=== PATIENT | female | born 1960 | race Caucasian/White ===

== ENCOUNTER 2017-07-12 23:18 | Emergency (ER) | payer OTHER ==
[~2017-07-12] VITALS: Ht 154.9 cm; Wt 61.2 kg
[2017-07-12 23:30] VITALS: BP 151/86
[2017-07-13] MEDS ORDERED: ACYCLOVIR 400 MG TAB PO ONE (02:00)
[2017-07-13] MEDS ORDERED: DEXAMETHASONE 4 MG TAB PO ONE (02:00)
== END 2017-07-13 02:13 | disposition home or self-care (01) ==
LOC: ER 23:22
DX: B02.9 Zoster without complications (principal)
CPT/HCPCS: 99283; J8540

== ENCOUNTER 2020-10-27 21:45 | Inpatient (IN) | payer MEDICAID, OTHER ==
[~2020-10-27] VITALS: Ht 154.9 cm; Wt 60.0 kg
[2020-10-27] MEDS ORDERED: cloNIDine HCL 0.1 MG TAB PO ONE (22:00)
[2020-10-27 22:34] LABS: Basophils # (auto) 0 10 ^3/uL (0-0.2); Eosinophils # (auto) 0 10 ^3/uL (0-0.8); Hemoglobin 10.5 g/dL (12.2-16.2); Neutrophils # (auto) 3.5 10 ^3/uL (1.6-8.6); White Blood Cell 5.4 10^3/uL (4.4-10.8)
[2020-10-27 22:35] LABS: Basophils % (auto) 0.6 % (0.0-2.0); Eosinophils % (auto) 0.5 % (0.0-7.0); Hematocrit 31.4 % (36.0-46.0); Lymphocytes # (auto) 1.5 10 ^3/uL (0.4-5.4); Lymphocytes % (auto) 28.4 % (10.0-50.0); Mean Corpuscular Hemoglobin 25.6 pg (28.0-32.0); Mean Corpuscular Hgb Conc. 33.4 g/dL (32.0-36.0); Mean Corpuscular Volume 76.5 fL (80.0-100.0); Monocytes # (auto) 0.3 10 ^3/uL (0-1.3); Monocytes % (auto) 6.4 % (0.0-12.0); Neutrophils % (auto) 64.1 % (37.0-80.0); Platelet Count (auto) 277 10^3/uL (140-450); Red Cell Distribution Width 15.6 % (11.8-14.3)
[2020-10-27 22:49] LABS: Albumin 3.4 g/dL (3.4-5.0); Anion Gap 10 (5-15); Blood Urea Nitrogen 12 mg/dL (7-18); Calcium 9.4 mg/dL (8.5-10.1); Carbon Dioxide 21 mmol/L (21-32); Chloride 111 mmol/L (98-107); Glucose 105 mg/dL (74-106); Potassium 3.4 mmol/L (3.5-5.1); Sodium 142 mmol/L (136-145)
[2020-10-27 22:54] LABS: Alanine Aminotransferase 28 U/L (13-56); Alkaline Phosphatase 124 U/L (45-117); Aspartate Aminotransferase 29 U/L (15-37); Bilirubin, Total 0.3 mg/dL (0.2-1.0); GFR African American 169 mL/min; GFR Non-African American 139 mL/min; Total Protein 7.3 g/dL (6.4-8.2)
[2020-10-28] MEDS ORDERED: IOHEXOL 300 MG/ML 100ML BOTTLE IJ ONE (02:14)
[2020-10-28] MEDS ORDERED: POTASSIUM CHL 20 Meq TABLET PO ONE (03:00)
[2020-10-28] MEDS ORDERED: HYDROcodone-ACET 5/325MG TAB PO PRN (03:00)
[2020-10-28] MEDS ORDERED: NITROGLYCERIN 0.4 MG SL TAB SL PRN (03:00)
[2020-10-28] MEDS ORDERED: DOCUSATE SOD 100 MG CAP PO PRN (03:00)
[2020-10-28] MEDS ORDERED: hydrALAZINE HCL 20 MG/ML VL IV PRN (03:00)
[2020-10-28] MEDS ORDERED: MORPHINE SULF INJ 2 MG/ML SYRINGE 1ML IV PRN (03:00)
[2020-10-28] MEDS ORDERED: MORPHINE SULFATE 4 MG/ML SYR/VIAL IV PRN (03:00)
[2020-10-28] MEDS ORDERED: ONDANSETRON HCL 4 MG/2 ML VIAL IV PRN (03:00)
[2020-10-28] MEDS ORDERED: GLIP10TA9 PO (04:26)
[2020-10-28] MEDS ORDERED: CETI-120 PO (04:26)
[2020-10-28] MEDS ORDERED: ROSU1TAB13 PO (04:26)
[2020-10-28] MEDS ORDERED: IBUP800T26 PO (04:26)
[2020-10-28] MEDS ORDERED: GABA300C10 PO (04:26)
[2020-10-28] MEDS ORDERED: FERR325T20 PO (04:26)
[2020-10-28] MEDS ORDERED: LISI-275 PO (04:26)
[2020-10-28] MEDS ORDERED: DAPA1TAB4 PO (04:26)
[2020-10-28 04:36] VITALS: BP 130/70
[2020-10-28 05:00] VITALS: BP 130/70
[2020-10-28] MEDS: SODIUM CHLOR 0.9% PF (SALINE LOCK) 10ML VIAL/SYR IV SCH ×3 (06:12→22:05)
[2020-10-28 08:33] VITALS: BP 136/81
[2020-10-28 09:01] LABS: Basophils # (auto) 0 10 ^3/uL (0-0.2); Eosinophils # (auto) 0 10 ^3/uL (0-0.8); Hemoglobin 9.9 g/dL (12.2-16.2); Lymphocytes # (auto) 0.9 10 ^3/uL (0.4-5.4); Monocytes # (auto) 0.3 10 ^3/uL (0-1.3)
[2020-10-28 09:04] LABS: Hematocrit 29.7 % (36.0-46.0); Lymphocytes % (auto) 19.6 % (10.0-50.0); Mean Corpuscular Hemoglobin 25.7 pg (28.0-32.0); Mean Corpuscular Hgb Conc. 33.3 g/dL (32.0-36.0); Mean Corpuscular Volume 77.1 fL (80.0-100.0); Monocytes % (auto) 7.6 % (0.0-12.0); Neutrophils # (auto) 3.1 10 ^3/uL (1.6-8.6); Neutrophils % (auto) 70.8 % (37.0-80.0); Platelet Count (auto) 259 10^3/uL (140-450); Red Blood Cells 3.85 10^6/uL (4.0-5.20); Red Cell Distribution Width 15.5 % (11.8-14.3); White Blood Cell 4.4 10^3/uL (4.4-10.8)
[2020-10-28 09:26] LABS: Albumin 3.2 g/dL (3.4-5.0); BUN/Creatinine Ratio 21.1; Bilirubin, Total 0.2 mg/dL (0.2-1.0); Total Protein 6.8 g/dL (6.4-8.2)
[2020-10-28] MEDS: FAMOTIDINE 20 MG TAB PO SCH (10:15)
[2020-10-28] MEDS: ZINC SULFATE 220mg CAP or TAB PO SCH (10:15)
[2020-10-28] MEDS: ASCORBIC ACID 500 MG TAB PO SCH ×2 (10:16→22:04)
[2020-10-28] MEDS: MULTIPLE VITAMIN TAB PO SCH (10:16)
[2020-10-28] MEDS: ENOXAPARIN SOD 40 MG/0.4 ML SYRINGE SC SCH (10:16)
[2020-10-28] MEDS ORDERED: ASPirin 81 mg TAB PO ONE (13:00)
[2020-10-28 13:09] VITALS: BP 144/74
[2020-10-28] MEDS ORDERED: DEXTROSE (50%) 50ML SYRG IV PRN (13:15)
[2020-10-28 16:37] VITALS: BP 147/68
[2020-10-28] MEDS: glipiZIDE 5 MG TAB PO SCH (17:00)
[2020-10-28] MEDS: ACETAMINOPHEN 325 MG TAB PO PRN (17:02)
[2020-10-28] MEDS: ACCU-CHEK COMFORT CURVE STRIP VI SCH ×2 (17:08→22:04)
[2020-10-28] MEDS: InsuLIN REG 1unit/0.01ml Soln (100units/ml) SC SCH ×2 (17:12→22:04)
[2020-10-28 22:00] VITALS: BP 138/69
[2020-10-28] MEDS ORDERED: GABAPENTIN 300 MG CAP PO PRN (22:00)
[2020-10-28] MEDS: ATORVASTATIN 20 MG TAB PO SCH (22:04)
[2020-10-28] MEDS: IBUPROFEN 800 MG TAB PO PRN (22:18)
[2020-10-29 05:00] VITALS: BP 146/75
[2020-10-29] MEDS: SODIUM CHLOR 0.9% PF (SALINE LOCK) 10ML VIAL/SYR IV SCH ×3 (06:09→21:58)
[2020-10-29] MEDS: ACCU-CHEK COMFORT CURVE STRIP VI SCH ×4 (06:09→21:53)
[2020-10-29] MEDS: InsuLIN REG 1unit/0.01ml Soln (100units/ml) SC SCH ×4 (06:15→21:54)
[2020-10-29] MEDS: IBUPROFEN 800 MG TAB PO PRN (06:18)
[2020-10-29 06:20] LABS: Basophils # (auto) 0 10 ^3/uL (0-0.2); Eosinophils # (auto) 0.1 10 ^3/uL (0-0.8); Mean Corpuscular Hemoglobin 25.9 pg (28.0-32.0); Monocytes # (auto) 0.4 10 ^3/uL (0-1.3); Neutrophils # (auto) 2.5 10 ^3/uL (1.6-8.6); Nucleated Red Blood Cells % 0.1 %
[2020-10-29 06:22] LABS: Eosinophils % (auto) 2.2 % (0.0-7.0); Hematocrit 29.8 % (36.0-46.0); Hemoglobin 10.1 g/dL (12.2-16.2); Lymphocytes # (auto) 1.3 10 ^3/uL (0.4-5.4); Lymphocytes % (auto) 30.3 % (10.0-50.0); Mean Corpuscular Hgb Conc. 33.8 g/dL (32.0-36.0); Mean Corpuscular Volume 76.6 fL (80.0-100.0); Monocytes % (auto) 8.9 % (0.0-12.0); Neutrophils % (auto) 57.6 % (37.0-80.0); Platelet Count (auto) 259 10^3/uL (140-450); Red Blood Cells 3.89 10^6/uL (4.0-5.20); Red Cell Distribution Width 15.1 % (11.8-14.3); White Blood Cell 4.3 10^3/uL (4.4-10.8)
[2020-10-29] MEDS: glipiZIDE 5 MG TAB PO SCH ×2 (06:34→17:00)
[2020-10-29 06:38] LABS: Albumin 3.2 g/dL (3.4-5.0); BUN/Creatinine Ratio 29.8; Calcium 8.8 mg/dL (8.5-10.1); Potassium 3.7 mmol/L (3.5-5.1)
[2020-10-29 06:40] LABS: Bilirubin, Total 0.3 mg/dL (0.2-1.0); Total Protein 6.8 g/dL (6.4-8.2)
[2020-10-29 09:00] VITALS: BP 144/81
[2020-10-29] MEDS: ASPirin 81 mg TAB PO SCH (09:55)
[2020-10-29] MEDS: ZINC SULFATE 220mg CAP or TAB PO SCH (09:56)
[2020-10-29] MEDS: FAMOTIDINE 20 MG TAB PO SCH (09:56)
[2020-10-29] MEDS: DAPAGLIFLOZIN 5 MG TAB PO SCH (09:56)
[2020-10-29] MEDS: FERROUS SULFATE 325mg EC TAB PO SCH (09:56)
[2020-10-29] MEDS: ASCORBIC ACID 500 MG TAB PO SCH ×2 (09:56→21:58)
[2020-10-29] MEDS: MULTIPLE VITAMIN TAB PO SCH (09:56)
[2020-10-29] MEDS: LISINOPRIL 5 MG TAB PO SCH (09:56)
[2020-10-29] MEDS: ENOXAPARIN SOD 40 MG/0.4 ML SYRINGE SC SCH (10:00)
[2020-10-29] MEDS: ACETAMINOPHEN 325 MG TAB PO PRN (10:58)
[2020-10-29 13:00] VITALS: BP 145/78
[2020-10-29 17:00] VITALS: BP 133/78
[2020-10-29] MEDS: ATORVASTATIN 20 MG TAB PO SCH (21:58)
[2020-10-29 22:00] VITALS: BP 133/76
[2020-10-29] MEDS ORDERED: GABAPENTIN 300 MG CAP PO PRN (22:45)
[2020-10-29 23:05] VITALS: BP 133/76
[2020-10-29] MEDS: SODIUM CHLORIDE 0.9% 1,000 ML IV SCH (23:26)
[2020-10-30] MEDS: IBUPROFEN 800 MG TAB PO PRN ×2 (02:30→10:58)
[2020-10-30 05:00] VITALS: BP 121/64
[2020-10-30] MEDS: glipiZIDE 5 MG TAB PO SCH (06:27)
[2020-10-30] MEDS: SODIUM CHLOR 0.9% PF (SALINE LOCK) 10ML VIAL/SYR IV SCH ×2 (06:27→14:00)
[2020-10-30] MEDS: InsuLIN REG 1unit/0.01ml Soln (100units/ml) SC SCH ×2 (06:33→11:15)
[2020-10-30] MEDS: ACCU-CHEK COMFORT CURVE STRIP VI SCH ×2 (06:44→11:15)
[2020-10-30 08:00] VITALS: BP 142/79
[2020-10-30] MEDS: SODIUM CHLORIDE 0.9% 1,000 ML IV SCH (08:30)
[2020-10-30 09:00] VITALS: BP 142/79
[2020-10-30 09:02] LABS: % Iron Saturation 6.2 % (15-50)
[2020-10-30 09:04] LABS: Cholesterol 130 mg/dL (< 200); HDL Cholesterol 38 mg/dL (40-59); LDL Cholesterol 77 mg/dL (< 100); Triglycerides 127 mg/dL (< 150)
[2020-10-30] MEDS: ASPirin 81 mg TAB PO SCH (09:45)
[2020-10-30] MEDS: FERROUS SULFATE 325mg EC TAB PO SCH (09:45)
[2020-10-30] MEDS: ZINC SULFATE 220mg CAP or TAB PO SCH (09:45)
[2020-10-30] MEDS: ASCORBIC ACID 500 MG TAB PO SCH (09:46)
[2020-10-30] MEDS: MULTIPLE VITAMIN TAB PO SCH (09:46)
[2020-10-30] MEDS: FAMOTIDINE 20 MG TAB PO SCH (09:46)
[2020-10-30] MEDS: ENOXAPARIN SOD 40 MG/0.4 ML SYRINGE SC SCH (09:47)
[2020-10-30] MEDS: LISINOPRIL 5 MG TAB PO SCH (09:47)
[2020-10-30] MEDS: DAPAGLIFLOZIN 5 MG TAB PO SCH (10:57)
[2020-10-30 13:00] VITALS: BP 139/82
[2020-10-30 14:29] VITALS: BP 139/82
== END 2020-10-30 15:20 | disposition home or self-care (01) | DRG 69 ==
LOC: ER 21:45 → TELE-EAST 10-28 02:55 → TELE-WESTW 10-30 01:20
PROVIDERS: ADMIT Nurse Practitioner Family; ATTEND Family Medicine
PROC: 5A09357 Assistance with Respiratory Ventilation, Less than 24 Consecutive Hours, Continuous Positive Airway Pressure (ICD-10-PCS; principal; 2020-10-29)
DX: G45.9 Transient cerebral ischemic attack, unspecified (principal); G81.94 Hemiplegia, unspecified affecting left nondominant side; R20.0 Anesthesia of skin; E87.6 Hypokalemia; I10 Essential (primary) hypertension; E11.9 Type 2 diabetes mellitus without complications; G25.81 Restless legs syndrome; E61.1 Iron deficiency; Z20.822 Contact with and (suspected) exposure to COVID-19; E78.00 Pure hypercholesterolemia, unspecified; E78.5 Hyperlipidemia, unspecified; F17.200 Nicotine dependence, unspecified, uncomplicated; Z79.82 Long term (current) use of aspirin; Z79.899 Other long term (current) drug therapy; Z80.7 Family history of other malignant neoplasms of lymphoid, hematopoietic and related tissues; Z82.3 Family history of stroke; Z82.49 Family history of ischemic heart disease and other diseases of the circulatory system; Z83.3 Family history of diabetes mellitus; Z90.710 Acquired absence of both cervix and uterus
CPT/HCPCS: 36415; 70450; 70460; 70551; 72125; 80053; 80061; 82728; 82962; 83036; 83540; 83550; 84484; 85025; 87426; 93005; 93306; 93886; 94660; G0378; J1815

== ENCOUNTER 2021-01-16 16:02 | Inpatient (IN) | payer MEDICAID ==
[~2021-01-16] VITALS: Ht 154.9 cm; Wt 64.5 kg
[~2021-01-16 16:02] MED LIST: CETI-120 PO; DAPA1TAB4 PO; FERR325T20 PO; GABA300C10 PO; GLIP10TA9 PO; IBUP800T26 PO; LISI-275 PO; ROSU1TAB13 PO
[2021-01-16] MEDS ORDERED: ACETAMINOPHEN 500 MG TAB PO ONE (16:30)
[2021-01-16] MEDS ORDERED: ASCORBIC ACID 500 MG TAB PO ONE (17:15)
[2021-01-16] MEDS ORDERED: AZITHROMYCIN 500MG/ 250ML 250 ML IV ONE (17:15)
[2021-01-16] MEDS ORDERED: ZINC SULFATE 220mg CAP or TAB PO ONE (17:15)
[2021-01-16] MEDS ORDERED: CHOLECALCIFEROL (VITD3) 2,000 UNIT CAP/TAB PO ONE (17:15)
[2021-01-16] MEDS ORDERED: methylPREDNISolone SOD SUCC 125 MG/2 ML VL IV ONE (17:15)
[2021-01-16 18:48] LABS: Basophils # (auto) 0 10 ^3/uL (0-0.2); Basophils % (auto) 0.2 % (0.0-2.0); Eosinophils # (auto) 0 10 ^3/uL (0-0.8); Hematocrit 29.1 % (36.0-46.0); Lymphocytes # (auto) 0.5 10 ^3/uL (0.4-5.4); Mean Corpuscular Volume 70.6 fL (80.0-100.0); Monocytes # (auto) 0.3 10 ^3/uL (0-1.3); White Blood Cell 2.7 10^3/uL (4.4-10.8)
[2021-01-16 18:50] LABS: Hemoglobin 9.4 g/dL (12.2-16.2); Lymphocytes % (auto) 17.9 % (10.0-50.0); Mean Corpuscular Hemoglobin 22.8 pg (28.0-32.0); Mean Corpuscular Hgb Conc. 32.3 g/dL (32.0-36.0); Monocytes % (auto) 10.2 % (0.0-12.0); Neutrophils % (auto) 71.7 % (37.0-80.0); Nucleated Red Blood Cells % 0.3 %; Red Blood Cells 4.13 10^6/uL (4.0-5.20); Red Cell Distribution Width 16.2 % (11.8-14.3)
[2021-01-16 19:05] LABS: Albumin 2.5 g/dL (3.4-5.0); Anion Gap 13 (5-15); BUN/Creatinine Ratio 26.7; Blood Urea Nitrogen 24 mg/dL (7-18); Calcium 8.2 mg/dL (8.5-10.1); Carbon Dioxide 23 mmol/L (21-32); Chloride 96 mmol/L (98-107); GFR African American 82 mL/min; GFR Non-African American 67 mL/min; Glucose 366 mg/dL (74-106); Potassium 3.3 mmol/L (3.5-5.1); Sodium 132 mmol/L (136-145)
[2021-01-16 19:10] LABS: Alanine Aminotransferase 63 U/L (13-56); Alkaline Phosphatase 281 U/L (45-117); Aspartate Aminotransferase 108 U/L (15-37); Bilirubin, Total 0.4 mg/dL (0.2-1.0); Total Protein 7.1 g/dL (6.4-8.2)
[2021-01-16] MEDS ORDERED: HYDROcodone-ACET 5/325MG TAB PO PRN (20:45)
[2021-01-16] MEDS ORDERED: hydrALAZINE HCL 20 MG/ML VL IV PRN (20:45)
[2021-01-16] MEDS ORDERED: REMDESIVIR PER PHARMACY 0 ML IV SCH (20:45)
[2021-01-16] MEDS ORDERED: IOHEXOL 350 MG/ML 100ML IJ ONE (21:10)
[2021-01-16] MEDS: ACCU-CHEK COMFORT CURVE STRIP VI SCH (22:00)
[2021-01-16] MEDS ORDERED: REMDESIVIR 200 MG in NS 210ml LOADING DOSE ADULT IV ONE (22:00)
[2021-01-16] MEDS ORDERED: POTASSIUM CHL 20MEQ/100ML 100 ML IV ONE (22:00)
[2021-01-16] MEDS: GABAPENTIN 300 MG CAP PO SCH (22:00)
[2021-01-16] MEDS: ATORVASTATIN 20 MG TAB PO SCH (22:00)
[2021-01-16] MEDS: InsuLIN REG 1unit/0.01ml Soln (100units/ml) SC SCH (22:00)
[2021-01-16] MEDS: INSULIN LANTUS (GLARGINE) 1 /0.01ml (100units/ml) SC SCH (22:00)
[2021-01-16] MEDS ORDERED: LORATADINE 10 MG TAB PO PRN (22:15)
[2021-01-16 22:47] VITALS: BP 117/63
[2021-01-17] MEDS: GABAPENTIN 300 MG CAP PO SCH ×3 (06:01→21:41)
[2021-01-17] MEDS: InsuLIN REG 1unit/0.01ml Soln (100units/ml) SC SCH ×4 (06:35→21:45)
[2021-01-17] MEDS: ALBUTEROL SULF HFA 90MCG INH 200DOSE IN SCH ×4 (06:46→18:44)
[2021-01-17] MEDS: ACCU-CHEK COMFORT CURVE STRIP VI SCH ×4 (06:48→21:45)
[2021-01-17] MEDS: LISINOPRIL 5 MG TAB PO SCH (10:35)
[2021-01-17] MEDS: DexAMETHasone SOD PHOS 10MG/1ML VIAL INJ IV SCH (10:35)
[2021-01-17] MEDS: FERROUS SULFATE 325mg EC TAB PO SCH (10:35)
[2021-01-17] MEDS: PANTOPRAZOLE 40 MG TAB PO SCH (10:35)
[2021-01-17] MEDS: ENOXAPARIN SOD 40 MG/0.4 ML SYRINGE SC SCH (10:35)
[2021-01-17] MEDS: INSULIN LANTUS (GLARGINE) 1 /0.01ml (100units/ml) SC SCH ×2 (11:56→21:45)
[2021-01-17 12:24] LABS: Basophils # (auto) 0 10 ^3/uL (0-0.2); Basophils % (auto) 0.2 % (0.0-2.0); Eosinophils # (auto) 0 10 ^3/uL (0-0.8); Lymphocytes # (auto) 0.6 10 ^3/uL (0.4-5.4); Mean Corpuscular Hgb Conc. 32.3 g/dL (32.0-36.0); Monocytes # (auto) 0.4 10 ^3/uL (0-1.3); Neutrophils # (auto) 2.5 10 ^3/uL (1.6-8.6)
[2021-01-17 12:26] LABS: Eosinophils % (auto) 0.1 % (0.0-7.0); Hemoglobin 10.4 g/dL (12.2-16.2); Lymphocytes % (auto) 16.6 % (10.0-50.0); Mean Corpuscular Hemoglobin 22.8 pg (28.0-32.0); Mean Corpuscular Volume 70.7 fL (80.0-100.0); Monocytes % (auto) 10.9 % (0.0-12.0); Neutrophils % (auto) 72.2 % (37.0-80.0); Red Blood Cells 4.53 10^6/uL (4.0-5.20); Red Cell Distribution Width 15.8 % (11.8-14.3); White Blood Cell 3.4 10^3/uL (4.4-10.8)
[2021-01-17 12:36] LABS: Albumin 2.7 g/dL (3.4-5.0); Calcium 9.6 mg/dL (8.5-10.1); Potassium 3.3 mmol/L (3.5-5.1)
[2021-01-17 12:39] LABS: BUN/Creatinine Ratio 30.9; Bilirubin, Total 0.4 mg/dL (0.2-1.0); Total Protein 8.1 g/dL (6.4-8.2)
[2021-01-17 13:33] VITALS: BP 118/68
[2021-01-17] MEDS: DOXYCYCLINE 100 MG TAB/CAP PO SCH ×2 (14:20→21:42)
[2021-01-17] MEDS: REMDESIVIR 100mg 100 MG in SODIUM CHL 0.9% 230 ML IV SCH (14:21)
[2021-01-17 17:00] VITALS: BP 120/68
[2021-01-17 20:00] VITALS: BP 114/63
[2021-01-17] MEDS: ATORVASTATIN 20 MG TAB PO SCH (21:41)
[2021-01-17 22:00] VITALS: BP 114/63
[2021-01-18] VITALS (7 sets, daily range): BP systolic 101–112; BP diastolic 55–62
[2021-01-18] MEDS: ALBUTEROL SULF HFA 90MCG INH 200DOSE IN SCH ×4 (00:33→18:08)
[2021-01-18] MEDS: ACCU-CHEK COMFORT CURVE STRIP VI SCH ×4 (06:32→21:58)
[2021-01-18] MEDS: InsuLIN REG 1unit/0.01ml Soln (100units/ml) SC SCH ×4 (06:34→22:12)
[2021-01-18] MEDS: GABAPENTIN 300 MG CAP PO SCH ×3 (06:42→21:58)
[2021-01-18 06:50] LABS: Basophils # (auto) 0 10 ^3/uL (0-0.2); Basophils % (auto) 0.1 % (0.0-2.0); Eosinophils # (auto) 0 10 ^3/uL (0-0.8); Lymphocytes # (auto) 0.5 10 ^3/uL (0.4-5.4); Lymphocytes % (auto) 13.3 % (10.0-50.0); Mean Corpuscular Hemoglobin 22.9 pg (28.0-32.0); White Blood Cell 4.1 10^3/uL (4.4-10.8)
[2021-01-18 06:52] LABS: Hematocrit 27.7 % (36.0-46.0); Mean Corpuscular Hgb Conc. 32.6 g/dL (32.0-36.0); Mean Corpuscular Volume 70.2 fL (80.0-100.0); Monocytes # (auto) 0.5 10 ^3/uL (0-1.3); Monocytes % (auto) 12.5 % (0.0-12.0); Neutrophils % (auto) 74.1 % (37.0-80.0); Nucleated Red Blood Cells % 0.1 %; Red Blood Cells 3.95 10^6/uL (4.0-5.20)
[2021-01-18 07:04] LABS: Potassium 3.8 mmol/L (3.5-5.1)
[2021-01-18 07:11] LABS: Albumin 2.1 g/dL (3.4-5.0); BUN/Creatinine Ratio 45.6; Bilirubin, Total 0.3 mg/dL (0.2-1.0); Calcium 9.1 mg/dL (8.5-10.1); Total Protein 6.7 g/dL (6.4-8.2)
[2021-01-18] MEDS: DexAMETHasone SOD PHOS 10MG/1ML VIAL INJ IV SCH (09:32)
[2021-01-18] MEDS: PANTOPRAZOLE 40 MG TAB PO SCH (09:32)
[2021-01-18] MEDS: FERROUS SULFATE 325mg EC TAB PO SCH (09:33)
[2021-01-18] MEDS: LISINOPRIL 5 MG TAB PO SCH (09:33)
[2021-01-18] MEDS: DOXYCYCLINE 100 MG TAB/CAP PO SCH ×2 (09:33→21:58)
[2021-01-18] MEDS: INSULIN LANTUS (GLARGINE) 1 /0.01ml (100units/ml) SC SCH ×2 (09:50→22:13)
[2021-01-18] MEDS: ENOXAPARIN SOD 40 MG/0.4 ML SYRINGE SC SCH (10:00)
[2021-01-18] MEDS ORDERED: guaiFENesin-DM 100/10mg/5ml SYR PO PRN (14:00)
[2021-01-18] MEDS: REMDESIVIR 100mg 100 MG in SODIUM CHL 0.9% 230 ML IV SCH (14:24)
[2021-01-18] MEDS: ATORVASTATIN 20 MG TAB PO SCH (21:58)
[2021-01-19 06:06] LABS: Basophils # (auto) 0 10 ^3/uL (0-0.2); Eosinophils # (auto) 0 10 ^3/uL (0-0.8); Lymphocytes # (auto) 0.6 10 ^3/uL (0.4-5.4); Mean Corpuscular Volume 69.8 fL (80.0-100.0); Monocytes # (auto) 0.5 10 ^3/uL (0-1.3); Neutrophils # (auto) 3.1 10 ^3/uL (1.6-8.6)
[2021-01-19 06:10] LABS: Basophils % (auto) 0.2 % (0.0-2.0); Hematocrit 26.5 % (36.0-46.0); Hemoglobin 8.6 g/dL (12.2-16.2); Lymphocytes % (auto) 14.8 % (10.0-50.0); Mean Corpuscular Hemoglobin 22.6 pg (28.0-32.0); Mean Corpuscular Hgb Conc. 32.3 g/dL (32.0-36.0); Monocytes % (auto) 11.3 % (0.0-12.0); Neutrophils % (auto) 73.7 % (37.0-80.0); Nucleated Red Blood Cells % 0.1 %; Red Cell Distribution Width 15.7 % (11.8-14.3); White Blood Cell 4.2 10^3/uL (4.4-10.8)
[2021-01-19] MEDS: ACCU-CHEK COMFORT CURVE STRIP VI SCH ×4 (06:37→21:53)
[2021-01-19] MEDS: GABAPENTIN 300 MG CAP PO SCH ×3 (06:37→21:53)
[2021-01-19] MEDS: InsuLIN REG 1unit/0.01ml Soln (100units/ml) SC SCH ×4 (06:38→22:06)
[2021-01-19 06:47] LABS: Potassium 3.1 mmol/L (3.5-5.1)
[2021-01-19 07:04] LABS: Albumin 2.1 g/dL (3.4-5.0); BUN/Creatinine Ratio 39.6; Bilirubin, Total 0.4 mg/dL (0.2-1.0); Calcium 8.8 mg/dL (8.5-10.1); Total Protein 6.3 g/dL (6.4-8.2)
[2021-01-19] MEDS: ALBUTEROL SULF HFA 90MCG INH 200DOSE IN SCH ×4 (07:45→20:29)
[2021-01-19 08:50] VITALS: BP 111/54
[2021-01-19] MEDS: DOXYCYCLINE 100 MG TAB/CAP PO SCH ×2 (09:40→21:53)
[2021-01-19] MEDS: FERROUS SULFATE 325mg EC TAB PO SCH (09:40)
[2021-01-19] MEDS: ENOXAPARIN SOD 40 MG/0.4 ML SYRINGE SC SCH (09:40)
[2021-01-19] MEDS: DexAMETHasone SOD PHOS 10MG/1ML VIAL INJ IV SCH (09:40)
[2021-01-19] MEDS: LISINOPRIL 5 MG TAB PO SCH (09:40)
[2021-01-19] MEDS: PANTOPRAZOLE 40 MG TAB PO SCH (09:40)
[2021-01-19] MEDS: INSULIN LANTUS (GLARGINE) 1 /0.01ml (100units/ml) SC SCH ×2 (09:54→22:07)
[2021-01-19 12:15] VITALS: BP 119/64
[2021-01-19 14:00] VITALS: BP 119/64
[2021-01-19] MEDS: REMDESIVIR 100mg 100 MG in SODIUM CHL 0.9% 230 ML IV SCH (14:50)
[2021-01-19 16:33] VITALS: BP 119/64
[2021-01-19 17:02] VITALS: BP 120/68
[2021-01-19] MEDS ORDERED: POTASSIUM EFFERVESENT TAB 25 MEQ PO SCH (20:00)
[2021-01-19] MEDS: ATORVASTATIN 20 MG TAB PO SCH (21:52)
[2021-01-19 22:08] VITALS: BP 131/72
[2021-01-20] MEDS ORDERED: POTASSIUM EFFERVESENT TAB 25 MEQ PO SCH (00:30)
[2021-01-20 05:04] VITALS: BP 125/69
[2021-01-20] MEDS: GABAPENTIN 300 MG CAP PO SCH ×3 (06:27→21:36)
[2021-01-20] MEDS: InsuLIN REG 1unit/0.01ml Soln (100units/ml) SC SCH ×4 (06:28→21:37)
[2021-01-20] MEDS: ACCU-CHEK COMFORT CURVE STRIP VI SCH ×4 (06:28→21:38)
[2021-01-20] MEDS: ALBUTEROL SULF HFA 90MCG INH 200DOSE IN SCH ×4 (06:44→18:55)
[2021-01-20 08:01] LABS: Basophils # (auto) 0 10 ^3/uL (0-0.2); Eosinophils # (auto) 0 10 ^3/uL (0-0.8); Mean Corpuscular Volume 69.7 fL (80.0-100.0); White Blood Cell 5.8 10^3/uL (4.4-10.8)
[2021-01-20 08:04] LABS: Basophils % (auto) 0.2 % (0.0-2.0); Hematocrit 28.5 % (36.0-46.0); Hemoglobin 9.2 g/dL (12.2-16.2); Lymphocytes % (auto) 16.6 % (10.0-50.0); Mean Corpuscular Hemoglobin 22.4 pg (28.0-32.0); Mean Corpuscular Hgb Conc. 32.2 g/dL (32.0-36.0); Monocytes # (auto) 0.6 10 ^3/uL (0-1.3); Monocytes % (auto) 9.9 % (0.0-12.0); Neutrophils # (auto) 4.2 10 ^3/uL (1.6-8.6); Neutrophils % (auto) 73.3 % (37.0-80.0); Nucleated Red Blood Cells % 0.1 %; Red Blood Cells 4.09 10^6/uL (4.0-5.20); Red Cell Distribution Width 15.9 % (11.8-14.3)
[2021-01-20 08:18] LABS: Albumin 2.1 g/dL (3.4-5.0); Calcium 8.8 mg/dL (8.5-10.1); Potassium 3.6 mmol/L (3.5-5.1)
[2021-01-20] MEDS ORDERED: IOHEXOL 300 MG/ML 100ML BOTTLE IJ ONE (08:18)
[2021-01-20 08:26] LABS: BUN/Creatinine Ratio 37.5; Bilirubin, Total 0.4 mg/dL (0.2-1.0); CRP High Sensitivity 3.19 mg/dL (< 0.3); Total Protein 6.2 g/dL (6.4-8.2)
[2021-01-20 09:13] VITALS: BP 122/55
[2021-01-20] MEDS: INSULIN LANTUS (GLARGINE) 1 /0.01ml (100units/ml) SC SCH ×2 (10:00→21:38)
[2021-01-20] MEDS: DexAMETHasone SOD PHOS 10MG/1ML VIAL INJ IV SCH (10:45)
[2021-01-20] MEDS: PANTOPRAZOLE 40 MG TAB PO SCH (10:45)
[2021-01-20] MEDS: ENOXAPARIN SOD 40 MG/0.4 ML SYRINGE SC SCH (10:45)
[2021-01-20] MEDS: DOXYCYCLINE 100 MG TAB/CAP PO SCH ×2 (10:45→21:37)
[2021-01-20] MEDS: LISINOPRIL 5 MG TAB PO SCH (10:46)
[2021-01-20] MEDS: FERROUS SULFATE 325mg EC TAB PO SCH (11:05)
[2021-01-20 13:16] VITALS: BP 133/63
[2021-01-20] MEDS: REMDESIVIR 100mg 100 MG in SODIUM CHL 0.9% 230 ML IV SCH (14:55)
[2021-01-20 17:06] VITALS: BP 134/73
[2021-01-20] MEDS: ATORVASTATIN 20 MG TAB PO SCH (21:36)
[2021-01-20 22:25] VITALS: BP 112/66
[2021-01-21] MEDS: ALBUTEROL SULF HFA 90MCG INH 200DOSE IN SCH ×4 (00:56→19:35)
[2021-01-21 05:04] VITALS: BP 118/67
[2021-01-21] MEDS: ACCU-CHEK COMFORT CURVE STRIP VI SCH ×4 (06:25→21:46)
[2021-01-21] MEDS: GABAPENTIN 300 MG CAP PO SCH ×3 (06:25→21:38)
[2021-01-21] MEDS: InsuLIN REG 1unit/0.01ml Soln (100units/ml) SC SCH ×4 (06:30→21:44)
[2021-01-21 07:16] LABS: Basophils # (auto) 0 10 ^3/uL (0-0.2); Basophils % (auto) 0.1 % (0.0-2.0); Eosinophils # (auto) 0 10 ^3/uL (0-0.8); Hematocrit 28.4 % (36.0-46.0); Hemoglobin 9.3 g/dL (12.2-16.2); Lymphocytes # (auto) 0.5 10 ^3/uL (0.4-5.4); Lymphocytes % (auto) 9.5 % (10.0-50.0); Mean Corpuscular Hemoglobin 22.7 pg (28.0-32.0); Mean Corpuscular Hgb Conc. 32.7 g/dL (32.0-36.0); Mean Corpuscular Volume 69.4 fL (80.0-100.0); Monocytes # (auto) 0.4 10 ^3/uL (0-1.3); Monocytes % (auto) 7.9 % (0.0-12.0); Neutrophils # (auto) 4.4 10 ^3/uL (1.6-8.6); Neutrophils % (auto) 82.5 % (37.0-80.0); Nucleated Red Blood Cells % 0.1 %; Red Blood Cells 4.09 10^6/uL (4.0-5.20); Red Cell Distribution Width 16.3 % (11.8-14.3); White Blood Cell 5.3 10^3/uL (4.4-10.8)
[2021-01-21 07:36] LABS: BUN/Creatinine Ratio 34.6; Calcium 8.6 mg/dL (8.5-10.1); Potassium 3.3 mmol/L (3.5-5.1)
[2021-01-21 08:00] VITALS: BP 129/67
[2021-01-21] MEDS: DexAMETHasone SOD PHOS 10MG/1ML VIAL INJ IV SCH (08:43)
[2021-01-21] MEDS: FERROUS SULFATE 325mg EC TAB PO SCH (08:43)
[2021-01-21] MEDS: PANTOPRAZOLE 40 MG TAB PO SCH (08:44)
[2021-01-21] MEDS: DOXYCYCLINE 100 MG TAB/CAP PO SCH ×2 (08:44→21:39)
[2021-01-21] MEDS: ENOXAPARIN SOD 40 MG/0.4 ML SYRINGE SC SCH (08:46)
[2021-01-21] MEDS: LISINOPRIL 5 MG TAB PO SCH (08:46)
[2021-01-21] MEDS: INSULIN LANTUS (GLARGINE) 1 /0.01ml (100units/ml) SC SCH ×2 (08:47→21:46)
[2021-01-21 12:00] VITALS: BP 126/75
[2021-01-21 16:00] VITALS: BP 118/71
[2021-01-21 20:00] VITALS: BP 129/64
[2021-01-21] MEDS: ATORVASTATIN 20 MG TAB PO SCH (21:38)
[2021-01-21 22:25] VITALS: BP 129/64
[2021-01-22] VITALS (7 sets, daily range): BP systolic 104–133; BP diastolic 5–85
[2021-01-22] MEDS: ALBUTEROL SULF HFA 90MCG INH 200DOSE IN SCH ×4 (00:28→19:26)
[2021-01-22] MEDS: ACCU-CHEK COMFORT CURVE STRIP VI SCH ×4 (06:22→21:14)
[2021-01-22] MEDS: InsuLIN REG 1unit/0.01ml Soln (100units/ml) SC SCH ×4 (06:29→21:16)
[2021-01-22] MEDS: GABAPENTIN 300 MG CAP PO SCH ×3 (06:29→21:14)
[2021-01-22] MEDS: DexAMETHasone SOD PHOS 10MG/1ML VIAL INJ IV SCH (09:31)
[2021-01-22] MEDS: FERROUS SULFATE 325mg EC TAB PO SCH (09:31)
[2021-01-22] MEDS: DOXYCYCLINE 100 MG TAB/CAP PO SCH ×2 (09:32→21:14)
[2021-01-22] MEDS: PANTOPRAZOLE 40 MG TAB PO SCH (09:32)
[2021-01-22] MEDS: LISINOPRIL 5 MG TAB PO SCH (09:32)
[2021-01-22] MEDS: ENOXAPARIN SOD 40 MG/0.4 ML SYRINGE SC SCH (09:33)
[2021-01-22] MEDS: INSULIN LANTUS (GLARGINE) 1 /0.01ml (100units/ml) SC SCH ×2 (12:19→21:18)
[2021-01-22] MEDS ORDERED: DOX100T PO (18:54)
[2021-01-22] MEDS ORDERED: ALBU0.08 NEB (18:54)
[2021-01-22] MEDS ORDERED: DEXT1SYP9 PO (18:54)
[2021-01-22] MEDS ORDERED: IPR002IS NEB (18:54)
[2021-01-22] MEDS ORDERED: DEXA6TAB6 PO (18:54)
[2021-01-22] MEDS ORDERED: ALBUAER3 IN (18:54)
[2021-01-22] MEDS: ATORVASTATIN 20 MG TAB PO SCH (21:14)
[2021-01-22] MEDS: ACETAMINOPHEN 325 MG TAB PO PRN (21:17)
[2021-01-23] MEDS: ALBUTEROL SULF HFA 90MCG INH 200DOSE IN SCH ×4 (00:42→19:18)
[2021-01-23 05:32] VITALS: BP 130/69
[2021-01-23] MEDS: GABAPENTIN 300 MG CAP PO SCH ×3 (06:01→20:53)
[2021-01-23] MEDS: InsuLIN REG 1unit/0.01ml Soln (100units/ml) SC SCH ×4 (06:36→20:54)
[2021-01-23] MEDS: ACCU-CHEK COMFORT CURVE STRIP VI SCH ×4 (06:36→20:55)
[2021-01-23 08:00] VITALS: BP 109/60
[2021-01-23 09:00] VITALS: BP 109/60
[2021-01-23] MEDS ORDERED: IOHEXOL 350 MG/ML 100ML IJ ONE (10:24)
[2021-01-23] MEDS: DexAMETHasone SOD PHOS 10MG/1ML VIAL INJ IV SCH (10:47)
[2021-01-23] MEDS: INSULIN LANTUS (GLARGINE) 1 /0.01ml (100units/ml) SC SCH ×2 (10:47→21:07)
[2021-01-23] MEDS: ENOXAPARIN SOD 40 MG/0.4 ML SYRINGE SC SCH (10:47)
[2021-01-23] MEDS: FERROUS SULFATE 325mg EC TAB PO SCH (10:47)
[2021-01-23] MEDS: DOXYCYCLINE 100 MG TAB/CAP PO SCH ×2 (10:47→20:53)
[2021-01-23] MEDS: PANTOPRAZOLE 40 MG TAB PO SCH (10:47)
[2021-01-23] MEDS: LISINOPRIL 5 MG TAB PO SCH (10:47)
[2021-01-23 11:03] LABS: Hemoglobin 9.5 g/dL (12.2-16.2); White Blood Cell 5.2 10^3/uL (4.4-10.8)
[2021-01-23 11:05] LABS: Hematocrit 29.5 % (36.0-46.0); Mean Corpuscular Hemoglobin 22.5 pg (28.0-32.0); Mean Corpuscular Hgb Conc. 32.3 g/dL (32.0-36.0); Mean Corpuscular Volume 69.8 fL (80.0-100.0); Red Blood Cells 4.23 10^6/uL (4.0-5.20); Red Cell Distribution Width 16.2 % (11.8-14.3)
[2021-01-23 11:07] LABS: Basophils % (manual) 0 (0.0-2.0); Blast Cells 0; Metamyelocytes % 0; Myelocytes % 0; Promyelocytes % 0; Reactive Lymphocytes 0
[2021-01-23 11:17] LABS: INR 1.23 (0.9-1.15); Partial Thromboplastin Time 24.4 sec (23.6-33.0)
[2021-01-23 11:28] LABS: Calcium 8.2 mg/dL (8.5-10.1); Potassium 3.8 mmol/L (3.5-5.1)
[2021-01-23 11:30] LABS: Band Neutrophils % (manual) 1; Eosinophils % (manual) 1 (0-7); Lymphocytes % (manual) 19 (10.0-50.0); Monocytes % (manual) 7 (0-12)
[2021-01-23] MEDS ORDERED: FUROSEMIDE 40 MG/4 ML VIAL IV ONE (11:45)
[2021-01-23 12:46] VITALS: BP 114/58
[2021-01-23 16:55] VITALS: BP 114/71
[2021-01-23] MEDS: ATORVASTATIN 20 MG TAB PO SCH (20:52)
[2021-01-23 22:00] VITALS: BP 119/70
[2021-01-24] MEDS: ALBUTEROL SULF HFA 90MCG INH 200DOSE IN SCH ×5 (00:45→22:26)
[2021-01-24 05:25] VITALS: BP 128/65
[2021-01-24] MEDS: GABAPENTIN 300 MG CAP PO SCH ×3 (05:55→21:19)
[2021-01-24] MEDS: ACCU-CHEK COMFORT CURVE STRIP VI SCH ×4 (06:18→21:19)
[2021-01-24] MEDS: InsuLIN REG 1unit/0.01ml Soln (100units/ml) SC SCH ×4 (06:20→21:21)
[2021-01-24 08:36] VITALS: BP 118/63
[2021-01-24] MEDS: LISINOPRIL 5 MG TAB PO SCH (09:25)
[2021-01-24] MEDS: PANTOPRAZOLE 40 MG TAB PO SCH (09:25)
[2021-01-24] MEDS: FERROUS SULFATE 325mg EC TAB PO SCH (09:25)
[2021-01-24] MEDS: FUROSEMIDE 40 MG/4 ML VIAL IV SCH (09:26)
[2021-01-24] MEDS: ENOXAPARIN SOD 40 MG/0.4 ML SYRINGE SC SCH (09:26)
[2021-01-24] MEDS: DexAMETHasone SOD PHOS 10MG/1ML VIAL INJ IV SCH (09:31)
[2021-01-24] MEDS: INSULIN LANTUS (GLARGINE) 1 /0.01ml (100units/ml) SC SCH ×2 (09:33→21:34)
[2021-01-24 12:34] VITALS: BP 118/65
[2021-01-24 17:00] VITALS: BP 110/59
[2021-01-24 21:04] VITALS: BP 110/59
[2021-01-24] MEDS: ATORVASTATIN 20 MG TAB PO SCH (21:19)
[2021-01-24 22:00] VITALS: BP 110/51
[2021-01-25 05:00] VITALS: BP 122/73
[2021-01-25] MEDS: GABAPENTIN 300 MG CAP PO SCH ×3 (05:52→22:29)
[2021-01-25] MEDS: ACCU-CHEK COMFORT CURVE STRIP VI SCH ×4 (06:35→22:29)
[2021-01-25] MEDS: InsuLIN REG 1unit/0.01ml Soln (100units/ml) SC SCH ×5 (06:35→23:05)
[2021-01-25] MEDS: ALBUTEROL SULF HFA 90MCG INH 200DOSE IN SCH ×3 (07:01→18:45)
[2021-01-25 09:00] VITALS: BP 118/66
[2021-01-25] MEDS: PANTOPRAZOLE 40 MG TAB PO SCH (09:40)
[2021-01-25] MEDS: DexAMETHasone SOD PHOS 10MG/1ML VIAL INJ IV SCH (09:40)
[2021-01-25] MEDS: FERROUS SULFATE 325mg EC TAB PO SCH (09:40)
[2021-01-25] MEDS: LISINOPRIL 5 MG TAB PO SCH (09:40)
[2021-01-25] MEDS: FUROSEMIDE 40 MG/4 ML VIAL IV SCH (09:40)
[2021-01-25] MEDS: ENOXAPARIN SOD 40 MG/0.4 ML SYRINGE SC SCH (09:41)
[2021-01-25] MEDS: INSULIN LANTUS (GLARGINE) 1 /0.01ml (100units/ml) SC SCH ×2 (09:54→23:05)
[2021-01-25 12:30] VITALS: BP 118/66
[2021-01-25 17:00] VITALS: BP 118/65
[2021-01-25 22:00] VITALS: BP 107/59
[2021-01-25] MEDS: ATORVASTATIN 20 MG TAB PO SCH (22:28)
[2021-01-26] MEDS: ALBUTEROL SULF HFA 90MCG INH 200DOSE IN SCH ×4 (00:16→18:00)
[2021-01-26 05:00] VITALS: BP 127/75
[2021-01-26] MEDS: GABAPENTIN 300 MG CAP PO SCH ×3 (06:30→21:56)
[2021-01-26] MEDS: ACCU-CHEK COMFORT CURVE STRIP VI SCH ×4 (06:30→21:56)
[2021-01-26 06:46] LABS: Potassium 3.8 mmol/L (3.5-5.1)
[2021-01-26] MEDS: InsuLIN REG 1unit/0.01ml Soln (100units/ml) SC SCH ×4 (06:46→22:03)
[2021-01-26 06:55] LABS: Basophils # (auto) 0 10 ^3/uL (0-0.2); Eosinophils # (auto) 0 10 ^3/uL (0-0.8); Hematocrit 28.4 % (36.0-46.0); Lymphocytes # (auto) 0.8 10 ^3/uL (0.4-5.4); Monocytes # (auto) 0.9 10 ^3/uL (0-1.3)
[2021-01-26 06:57] LABS: Basophils % (auto) 0.2 % (0.0-2.0); Lymphocytes % (auto) 11.3 % (10.0-50.0); Mean Corpuscular Hemoglobin 22.1 pg (28.0-32.0); Mean Corpuscular Hgb Conc. 31.7 g/dL (32.0-36.0); Mean Corpuscular Volume 69.8 fL (80.0-100.0); Monocytes % (auto) 12.3 % (0.0-12.0); Neutrophils # (auto) 5.5 10 ^3/uL (1.6-8.6); Neutrophils % (auto) 76.2 % (37.0-80.0); Nucleated Red Blood Cells % 0.1 %; Red Blood Cells 4.07 10^6/uL (4.0-5.20); Red Cell Distribution Width 15.9 % (11.8-14.3); White Blood Cell 7.3 10^3/uL (4.4-10.8)
[2021-01-26 06:58] LABS: Albumin 1.9 g/dL (3.4-5.0); BUN/Creatinine Ratio 25.9; Bilirubin, Total 0.3 mg/dL (0.2-1.0); Calcium 8.8 mg/dL (8.5-10.1); Total Protein 6.2 g/dL (6.4-8.2)
[2021-01-26 08:00] VITALS: BP 118/66
[2021-01-26 09:00] VITALS: BP 122/70
[2021-01-26] MEDS: INSULIN LANTUS (GLARGINE) 1 /0.01ml (100units/ml) SC SCH ×2 (10:17→22:03)
[2021-01-26] MEDS: PANTOPRAZOLE 40 MG TAB PO SCH (10:25)
[2021-01-26] MEDS: DexAMETHasone SOD PHOS 10MG/1ML VIAL INJ IV SCH (10:25)
[2021-01-26] MEDS: FERROUS SULFATE 325mg EC TAB PO SCH (10:26)
[2021-01-26] MEDS: LISINOPRIL 5 MG TAB PO SCH (10:26)
[2021-01-26] MEDS: FUROSEMIDE 40 MG/4 ML VIAL IV SCH (10:26)
[2021-01-26] MEDS: ENOXAPARIN SOD 40 MG/0.4 ML SYRINGE SC SCH (10:27)
[2021-01-26 13:00] VITALS: BP 120/66
[2021-01-26 16:50] VITALS: BP 121/73
[2021-01-26] MEDS: ACETAMINOPHEN 325 MG TAB PO PRN (21:47)
[2021-01-26] MEDS: ATORVASTATIN 20 MG TAB PO SCH (21:56)
[2021-01-26 22:00] VITALS: BP 115/68
[2021-01-27] MEDS: ALBUTEROL SULF HFA 90MCG INH 200DOSE IN SCH ×4 (00:09→19:00)
[2021-01-27 05:00] VITALS: BP 130/66
[2021-01-27] MEDS: GABAPENTIN 300 MG CAP PO SCH ×3 (06:04→22:02)
[2021-01-27] MEDS: ACCU-CHEK COMFORT CURVE STRIP VI SCH ×4 (06:04→22:02)
[2021-01-27] MEDS: InsuLIN REG 1unit/0.01ml Soln (100units/ml) SC SCH ×4 (06:15→22:26)
[2021-01-27 07:42] LABS: Eosinophils # (auto) 0 10 ^3/uL (0-0.8); Lymphocytes # (auto) 0.9 10 ^3/uL (0.4-5.4)
[2021-01-27 07:44] LABS: Basophils # (auto) 0.1 10 ^3/uL (0-0.2); Basophils % (auto) 0.8 % (0.0-2.0); Hematocrit 30.5 % (36.0-46.0); Hemoglobin 9.8 g/dL (12.2-16.2); Mean Corpuscular Hemoglobin 22.6 pg (28.0-32.0); Mean Corpuscular Hgb Conc. 32.2 g/dL (32.0-36.0); Monocytes # (auto) 0.8 10 ^3/uL (0-1.3); Monocytes % (auto) 9.4 % (0.0-12.0); Neutrophils # (auto) 6.8 10 ^3/uL (1.6-8.6); Neutrophils % (auto) 79.8 % (37.0-80.0); Red Blood Cells 4.36 10^6/uL (4.0-5.20); Red Cell Distribution Width 15.9 % (11.8-14.3); White Blood Cell 8.5 10^3/uL (4.4-10.8)
[2021-01-27 08:00] VITALS: BP 122/70
[2021-01-27 08:14] LABS: Albumin 2.1 g/dL (3.4-5.0); Calcium 9.2 mg/dL (8.5-10.1); Potassium 4.4 mmol/L (3.5-5.1)
[2021-01-27 08:19] LABS: BUN/Creatinine Ratio 40.4; Bilirubin, Total 0.4 mg/dL (0.2-1.0); Total Protein 6.8 g/dL (6.4-8.2)
[2021-01-27 09:00] VITALS: BP 113/68
[2021-01-27] MEDS: DexAMETHasone SOD PHOS 10MG/1ML VIAL INJ IV SCH (10:00)
[2021-01-27] MEDS: FERROUS SULFATE 325mg EC TAB PO SCH (10:01)
[2021-01-27] MEDS: PANTOPRAZOLE 40 MG TAB PO SCH (10:01)
[2021-01-27] MEDS: FUROSEMIDE 40 MG/4 ML VIAL IV SCH (10:01)
[2021-01-27] MEDS: LACTULOSE 20Gm/30ML SOLN PO PRN ×2 (10:02→22:27)
[2021-01-27] MEDS: ENOXAPARIN SOD 40 MG/0.4 ML SYRINGE SC SCH (10:02)
[2021-01-27] MEDS: LISINOPRIL 5 MG TAB PO SCH (10:02)
[2021-01-27] MEDS: INSULIN LANTUS (GLARGINE) 1 /0.01ml (100units/ml) SC SCH ×2 (10:03→22:26)
[2021-01-27 13:00] VITALS: BP 103/57
[2021-01-27 17:00] VITALS: BP 118/69
[2021-01-27] MEDS: ATORVASTATIN 20 MG TAB PO SCH (22:02)
[2021-01-28] MEDS: ALBUTEROL SULF HFA 90MCG INH 200DOSE IN SCH ×5 (00:40→19:38)
[2021-01-28 01:48] VITALS: BP 118/69
[2021-01-28 06:00] VITALS: BP 97/60
[2021-01-28] MEDS: GABAPENTIN 300 MG CAP PO SCH ×3 (06:00→21:47)
[2021-01-28 06:03] LABS: Basophils # (auto) 0.1 10 ^3/uL (0-0.2); Eosinophils # (auto) 0 10 ^3/uL (0-0.8)
[2021-01-28 06:06] LABS: Basophils % (auto) 0.5 % (0.0-2.0); Hematocrit 35.6 % (36.0-46.0); Hemoglobin 11.2 g/dL (12.2-16.2); Lymphocytes # (auto) 1.5 10 ^3/uL (0.4-5.4); Lymphocytes % (auto) 7.7 % (10.0-50.0); Mean Corpuscular Hgb Conc. 31.5 g/dL (32.0-36.0); Monocytes # (auto) 1.6 10 ^3/uL (0-1.3); Monocytes % (auto) 8.2 % (0.0-12.0); Neutrophils # (auto) 16.3 10 ^3/uL (1.6-8.6); Neutrophils % (auto) 83.6 % (37.0-80.0); Red Blood Cells 5.09 10^6/uL (4.0-5.20); Red Cell Distribution Width 16.7 % (11.8-14.3); White Blood Cell 19.5 10^3/uL (4.4-10.8)
[2021-01-28] MEDS: ACCU-CHEK COMFORT CURVE STRIP VI SCH ×4 (06:14→21:48)
[2021-01-28] MEDS: InsuLIN REG 1unit/0.01ml Soln (100units/ml) SC SCH ×4 (06:15→21:49)
[2021-01-28 06:26] LABS: Albumin 2.2 g/dL (3.4-5.0); BUN/Creatinine Ratio 37.7; Bilirubin, Total 0.6 mg/dL (0.2-1.0); Calcium 9.5 mg/dL (8.5-10.1); Total Protein 7.3 g/dL (6.4-8.2)
[2021-01-28] MEDS: FUROSEMIDE 40 MG/4 ML VIAL IV SCH (08:48)
[2021-01-28] MEDS: LISINOPRIL 5 MG TAB PO SCH (08:49)
[2021-01-28] MEDS: FERROUS SULFATE 325mg EC TAB PO SCH (08:54)
[2021-01-28] MEDS: PANTOPRAZOLE 40 MG TAB PO SCH (08:54)
[2021-01-28] MEDS: DexAMETHasone SOD PHOS 10MG/1ML VIAL INJ IV SCH (08:54)
[2021-01-28] MEDS: ENOXAPARIN SOD 40 MG/0.4 ML SYRINGE SC SCH (08:55)
[2021-01-28 09:00] VITALS: BP 97/60
[2021-01-28] MEDS: INSULIN LANTUS (GLARGINE) 1 /0.01ml (100units/ml) SC SCH ×2 (09:03→21:49)
[2021-01-28] MEDS: LACTULOSE 20Gm/30ML SOLN PO PRN (12:32)
[2021-01-28 13:00] VITALS: BP 100/58
[2021-01-28 17:00] VITALS: BP 98/64
[2021-01-28 21:42] VITALS: BP 91/53
[2021-01-28] MEDS: ATORVASTATIN 20 MG TAB PO SCH (21:47)
[2021-01-29 05:00] VITALS: BP 101/63
[2021-01-29 05:12] LABS: Albumin 2.2 g/dL (3.4-5.0); Calcium 9.2 mg/dL (8.5-10.1); Potassium 5.1 mmol/L (3.5-5.1)
[2021-01-29 05:16] LABS: BUN/Creatinine Ratio 41.7; Bilirubin, Total 0.6 mg/dL (0.2-1.0); Total Protein 7.1 g/dL (6.4-8.2)
[2021-01-29] MEDS: GABAPENTIN 300 MG CAP PO SCH ×3 (05:34→21:13)
[2021-01-29] MEDS: ACCU-CHEK COMFORT CURVE STRIP VI SCH ×4 (05:34→21:14)
[2021-01-29] MEDS: InsuLIN REG 1unit/0.01ml Soln (100units/ml) SC SCH ×4 (05:34→21:15)
[2021-01-29] MEDS: ALBUTEROL SULF HFA 90MCG INH 200DOSE IN SCH ×3 (06:36→19:12)
[2021-01-29 09:00] VITALS: BP 105/57
[2021-01-29] MEDS: INSULIN LANTUS (GLARGINE) 1 /0.01ml (100units/ml) SC SCH ×2 (09:23→21:15)
[2021-01-29] MEDS: FERROUS SULFATE 325mg EC TAB PO SCH (09:24)
[2021-01-29] MEDS: DexAMETHasone SOD PHOS 10MG/1ML VIAL INJ IV SCH (09:24)
[2021-01-29] MEDS: FUROSEMIDE 40 MG/4 ML VIAL IV SCH (09:25)
[2021-01-29] MEDS: PANTOPRAZOLE 40 MG TAB PO SCH (09:25)
[2021-01-29 13:00] VITALS: BP 96/44
[2021-01-29 17:00] VITALS: BP 93/50
[2021-01-29] MEDS: ATORVASTATIN 20 MG TAB PO SCH (21:13)
[2021-01-29 21:54] VITALS: BP 99/55
[2021-01-30 05:00] VITALS: BP 110/66
[2021-01-30] MEDS: ACCU-CHEK COMFORT CURVE STRIP VI SCH ×4 (06:11→21:14)
[2021-01-30] MEDS: GABAPENTIN 300 MG CAP PO SCH ×3 (06:11→21:14)
[2021-01-30] MEDS: InsuLIN REG 1unit/0.01ml Soln (100units/ml) SC SCH ×4 (06:12→21:18)
[2021-01-30] MEDS: ALBUTEROL SULF HFA 90MCG INH 200DOSE IN SCH ×3 (06:52→20:13)
[2021-01-30] MEDS: INSULIN LANTUS (GLARGINE) 1 /0.01ml (100units/ml) SC SCH ×2 (08:32→21:18)
[2021-01-30] MEDS: PANTOPRAZOLE 40 MG TAB PO SCH (08:32)
[2021-01-30] MEDS: FERROUS SULFATE 325mg EC TAB PO SCH (08:33)
[2021-01-30] MEDS: DexAMETHasone SOD PHOS 10MG/1ML VIAL INJ IV SCH (08:33)
[2021-01-30 08:38] VITALS: BP 100/54
[2021-01-30] MEDS: FUROSEMIDE 40 MG/4 ML VIAL IV SCH (08:38)
[2021-01-30 13:00] VITALS: BP 102/52
[2021-01-30 17:00] VITALS: BP 102/58
[2021-01-30] MEDS: ATORVASTATIN 20 MG TAB PO SCH (21:14)
[2021-01-30 22:00] VITALS: BP 103/49
[2021-01-31] VITALS (7 sets, daily range): BP systolic 107–119; BP diastolic 61–70
[2021-01-31] MEDS: ACCU-CHEK COMFORT CURVE STRIP VI SCH ×4 (06:04→21:53)
[2021-01-31] MEDS: GABAPENTIN 300 MG CAP PO SCH ×3 (06:04→22:06)
[2021-01-31] MEDS: InsuLIN REG 1unit/0.01ml Soln (100units/ml) SC SCH ×4 (06:04→21:51)
[2021-01-31] MEDS: ALBUTEROL SULF HFA 90MCG INH 200DOSE IN SCH ×3 (06:36→20:46)
[2021-01-31] MEDS: FUROSEMIDE 40 MG/4 ML VIAL IV SCH (09:59)
[2021-01-31] MEDS: DexAMETHasone SOD PHOS 10MG/1ML VIAL INJ IV SCH (09:59)
[2021-01-31] MEDS: FERROUS SULFATE 325mg EC TAB PO SCH (09:59)
[2021-01-31] MEDS: PANTOPRAZOLE 40 MG TAB PO SCH (09:59)
[2021-01-31] MEDS: INSULIN LANTUS (GLARGINE) 1 /0.01ml (100units/ml) SC SCH ×2 (10:02→21:53)
[2021-01-31 11:25] LABS: Basophils # (auto) 0.1 10 ^3/uL (0-0.2); Eosinophils # (auto) 0 10 ^3/uL (0-0.8); Eosinophils % (auto) 0.1 % (0.0-7.0); Hemoglobin 9.9 g/dL (12.2-16.2); Lymphocytes # (auto) 0.6 10 ^3/uL (0.4-5.4); Mean Corpuscular Hemoglobin 22.9 pg (28.0-32.0); Monocytes # (auto) 0.9 10 ^3/uL (0-1.3)
[2021-01-31 11:27] LABS: Basophils % (auto) 0.8 % (0.0-2.0); Hematocrit 30.5 % (36.0-46.0); Lymphocytes % (auto) 5.7 % (10.0-50.0); Mean Corpuscular Hgb Conc. 32.6 g/dL (32.0-36.0); Mean Corpuscular Volume 70.1 fL (80.0-100.0); Monocytes % (auto) 9.3 % (0.0-12.0); Neutrophils # (auto) 8.2 10 ^3/uL (1.6-8.6); Neutrophils % (auto) 84.1 % (37.0-80.0); Red Blood Cells 4.35 10^6/uL (4.0-5.20); Red Cell Distribution Width 16.7 % (11.8-14.3); White Blood Cell 9.7 10^3/uL (4.4-10.8)
[2021-01-31 11:43] LABS: Potassium 3.8 mmol/L (3.5-5.1)
[2021-01-31 11:57] LABS: Albumin 1.9 g/dL (3.4-5.0); BUN/Creatinine Ratio 35.5; Bilirubin, Total 0.5 mg/dL (0.2-1.0); Calcium 8.6 mg/dL (8.5-10.1); Total Protein 6.6 g/dL (6.4-8.2)
[2021-01-31] MEDS: ATORVASTATIN 20 MG TAB PO SCH (22:06)
[2021-02-01 05:00] VITALS: BP 111/58
[2021-02-01] MEDS: InsuLIN REG 1unit/0.01ml Soln (100units/ml) SC SCH ×4 (06:26→22:30)
[2021-02-01] MEDS: ACCU-CHEK COMFORT CURVE STRIP VI SCH ×4 (06:26→22:00)
[2021-02-01] MEDS: GABAPENTIN 300 MG CAP PO SCH ×3 (06:26→22:39)
[2021-02-01 08:00] VITALS: BP 117/59
[2021-02-01 09:00] VITALS: BP 117/59
[2021-02-01] MEDS: DexAMETHasone SOD PHOS 10MG/1ML VIAL INJ IV SCH ×2 (09:37→22:39)
[2021-02-01] MEDS: FERROUS SULFATE 325mg EC TAB PO SCH (09:38)
[2021-02-01] MEDS: FUROSEMIDE 40 MG/4 ML VIAL IV SCH (09:38)
[2021-02-01] MEDS: PANTOPRAZOLE 40 MG TAB PO SCH (09:38)
[2021-02-01] MEDS: ALBUTEROL SULF HFA 90MCG INH 200DOSE IN SCH ×3 (09:39→21:19)
[2021-02-01] MEDS: INSULIN LANTUS (GLARGINE) 1 /0.01ml (100units/ml) SC SCH ×2 (09:59→22:31)
[2021-02-01] MEDS ORDERED: ENOXAPARIN SOD 40 MG/0.4 ML SYRINGE SC SCH (12:00)
[2021-02-01 13:00] VITALS: BP 111/64
[2021-02-01 17:00] VITALS: BP 97/50
[2021-02-01 21:30] VITALS: BP 110/67
[2021-02-01] MEDS ORDERED: IOHEXOL 350 MG/ML 100ML IJ ONE (21:46)
[2021-02-01] MEDS: ATORVASTATIN 20 MG TAB PO SCH (22:39)
[2021-02-01] MEDS: ENOXAPARIN SOD 40 MG/0.4 ML SYRINGE SC SCH (22:40)
[2021-02-02 05:27] VITALS: BP 127/72
[2021-02-02] MEDS: GABAPENTIN 300 MG CAP PO SCH ×3 (06:35→22:16)
[2021-02-02] MEDS: ACCU-CHEK COMFORT CURVE STRIP VI SCH ×4 (06:39→22:24)
[2021-02-02] MEDS: InsuLIN REG 1unit/0.01ml Soln (100units/ml) SC SCH ×4 (06:40→22:00)
[2021-02-02] MEDS: ALBUTEROL SULF HFA 90MCG INH 200DOSE IN SCH ×3 (07:20→22:00)
[2021-02-02 09:00] VITALS: BP 119/67
[2021-02-02] MEDS: DexAMETHasone SOD PHOS 10MG/1ML VIAL INJ IV SCH ×2 (10:45→22:16)
[2021-02-02] MEDS: FERROUS SULFATE 325mg EC TAB PO SCH (10:46)
[2021-02-02] MEDS: PANTOPRAZOLE 40 MG TAB PO SCH (10:46)
[2021-02-02] MEDS: INSULIN LANTUS (GLARGINE) 1 /0.01ml (100units/ml) SC SCH ×2 (10:46→22:00)
[2021-02-02] MEDS: FUROSEMIDE 40 MG/4 ML VIAL IV SCH (10:46)
[2021-02-02] MEDS: ENOXAPARIN SOD 40 MG/0.4 ML SYRINGE SC SCH ×2 (10:46→22:17)
[2021-02-02 13:00] VITALS: BP 106/54
[2021-02-02] MEDS: LACTULOSE 20Gm/30ML SOLN PO PRN (14:47)
[2021-02-02 17:00] VITALS: BP 120/61
[2021-02-02 22:00] VITALS: BP 108/64
[2021-02-02] MEDS: ATORVASTATIN 20 MG TAB PO SCH (22:16)
[2021-02-03] VITALS (7 sets, daily range): BP systolic 71–116; BP diastolic 54–67
[2021-02-03] MEDS: GABAPENTIN 300 MG CAP PO SCH ×3 (05:35→22:41)
[2021-02-03] MEDS: InsuLIN REG 1unit/0.01ml Soln (100units/ml) SC SCH ×4 (06:18→22:00)
[2021-02-03] MEDS: LACTULOSE 20Gm/30ML SOLN PO PRN (06:30)
[2021-02-03] MEDS: ACCU-CHEK COMFORT CURVE STRIP VI SCH ×4 (06:30→22:00)
[2021-02-03] MEDS: ALBUTEROL SULF HFA 90MCG INH 200DOSE IN SCH ×2 (07:01→18:50)
[2021-02-03 07:20] LABS: Albumin 2.1 g/dL (3.4-5.0); Calcium 9.2 mg/dL (8.5-10.1); Potassium 3.6 mmol/L (3.5-5.1)
[2021-02-03 07:27] LABS: BUN/Creatinine Ratio 35.7; Bilirubin, Total 0.6 mg/dL (0.2-1.0); Total Protein 6.6 g/dL (6.4-8.2)
[2021-02-03] MEDS: FERROUS SULFATE 325mg EC TAB PO SCH (08:54)
[2021-02-03] MEDS: PANTOPRAZOLE 40 MG TAB PO SCH (08:54)
[2021-02-03] MEDS: FUROSEMIDE 40 MG/4 ML VIAL IV SCH (08:54)
[2021-02-03] MEDS: ENOXAPARIN SOD 40 MG/0.4 ML SYRINGE SC SCH ×2 (08:55→22:42)
[2021-02-03] MEDS: DexAMETHasone SOD PHOS 10MG/1ML VIAL INJ IV SCH ×2 (08:56→22:41)
[2021-02-03] MEDS: INSULIN LANTUS (GLARGINE) 1 /0.01ml (100units/ml) SC SCH ×2 (10:00→22:00)
[2021-02-03] MEDS ORDERED: GASTROGRAFIN 120 ML SOL ONE (15:13)
[2021-02-03] MEDS ORDERED: PIPERACILLIN-TAZOB 3.375GM 100 ML IV ONE (17:15)
[2021-02-03] MEDS ORDERED: METOPROLOL TARTRATE 1MG/1ML-5ML VIAL IV PRN (18:30)
[2021-02-03] MEDS: ONDANSETRON HCL 4 MG/2 ML VIAL IV PRN (18:43)
[2021-02-03] MEDS ORDERED: SODIUM CHLORIDE 0.9% 1,000 ML IV ONE (21:45)
[2021-02-03] MEDS: ATORVASTATIN 20 MG TAB PO SCH (22:41)
[2021-02-04 05:00] VITALS: BP 91/48
[2021-02-04] MEDS: PIPERACILLIN-TAZOB 3.375GM 100 ML IV SCH ×5 (05:56→23:39)
[2021-02-04] MEDS: InsuLIN REG 1unit/0.01ml Soln (100units/ml) SC SCH ×4 (05:56→22:37)
[2021-02-04] MEDS: GABAPENTIN 300 MG CAP PO SCH ×3 (05:56→22:11)
[2021-02-04] MEDS: ACCU-CHEK COMFORT CURVE STRIP VI SCH ×4 (05:56→22:11)
[2021-02-04] MEDS: ALBUTEROL SULF HFA 90MCG INH 200DOSE IN SCH ×2 (06:58→21:23)
[2021-02-04 07:27] LABS: Hemoglobin 9.4 g/dL (12.2-16.2); White Blood Cell 9.6 10^3/uL (4.4-10.8)
[2021-02-04 07:33] LABS: Hematocrit 28.6 % (36.0-46.0); Mean Corpuscular Hgb Conc. 33.1 g/dL (32.0-36.0); Mean Corpuscular Volume 69.7 fL (80.0-100.0); Red Cell Distribution Width 17.9 % (11.8-14.3)
[2021-02-04 07:36] LABS: Basophils % (manual) 0 (0.0-2.0); Blast Cells 0; Eosinophils % (manual) 0 (0-7); Myelocytes % 0; Promyelocytes % 0; Reactive Lymphocytes 0
[2021-02-04 07:44] LABS: Albumin 1.6 g/dL (3.4-5.0); BUN/Creatinine Ratio 34.2; Bilirubin, Total 0.6 mg/dL (0.2-1.0); Calcium 7.6 mg/dL (8.5-10.1); Magnesium 2.3 mg/dL (1.6-2.6); Total Protein 5.6 g/dL (6.4-8.2)
[2021-02-04 08:00] VITALS: BP 93/54
[2021-02-04 08:12] LABS: Band Neutrophils % (manual) 37; Lymphocytes % (manual) 4 (10.0-50.0); Metamyelocytes % 4; Monocytes % (manual) 1 (0-12)
[2021-02-04] MEDS: DexAMETHasone SOD PHOS 10MG/1ML VIAL INJ IV SCH ×2 (08:55→22:10)
[2021-02-04] MEDS: ENOXAPARIN SOD 40 MG/0.4 ML SYRINGE SC SCH ×2 (08:56→22:11)
[2021-02-04] MEDS: FUROSEMIDE 40 MG/4 ML VIAL IV SCH (08:58)
[2021-02-04 09:00] VITALS: BP 93/54
[2021-02-04] MEDS: FERROUS SULFATE 325mg EC TAB PO SCH (09:15)
[2021-02-04] MEDS: INSULIN LANTUS (GLARGINE) 1 /0.01ml (100units/ml) SC SCH ×2 (09:15→22:00)
[2021-02-04] MEDS: PANTOPRAZOLE 40 MG TAB PO SCH (09:15)
[2021-02-04] MEDS ORDERED: DIGOXIN (250MCG/ML) 2 ML AMPULE IV ONE (11:00)
[2021-02-04] MEDS: D5W/ SOD CHL 0.9%/KCL 20MEQ 1,000 ML IV SCH ×2 (12:29→20:45)
[2021-02-04] MEDS: POTASSIUM CHL 20MEQ/100ML 100 ML IV SCH ×3 (12:29→19:47)
[2021-02-04 13:00] VITALS: BP 111/57
[2021-02-04] MEDS: DIGOXIN (250MCG/ML) 2 ML AMPULE IV SCH ×2 (14:39→20:04)
[2021-02-04 17:00] VITALS: BP 105/61
[2021-02-04] MEDS: ACETAMINOPHEN 325 MG TAB PO PRN (17:41)
[2021-02-04] MEDS ORDERED: MORPHINE SULFATE INJECTION 2 MG/ML SYRG IV PRN (18:45)
[2021-02-04 22:00] VITALS: BP 109/64
[2021-02-04] MEDS: ATORVASTATIN 20 MG TAB PO SCH (22:10)
[2021-02-04] MEDS: MORPHINE SULFATE INJECTION 2 MG/ML SYRG IV PRN (23:18)
[2021-02-05] MEDS: DIGOXIN (250MCG/ML) 2 ML AMPULE IV SCH (02:00)
[2021-02-05 05:00] VITALS: BP 97/66
[2021-02-05] MEDS: GABAPENTIN 300 MG CAP PO SCH ×3 (05:37→21:20)
[2021-02-05 05:44] LABS: Albumin 1.3 g/dL (3.4-5.0); Calcium 7.8 mg/dL (8.5-10.1); Potassium 4.2 mmol/L (3.5-5.1)
[2021-02-05 05:48] LABS: Bilirubin, Total 0.6 mg/dL (0.2-1.0); Total Protein 5.3 g/dL (6.4-8.2)
[2021-02-05] MEDS: PIPERACILLIN-TAZOB 3.375GM 100 ML IV SCH ×4 (05:55→23:53)
[2021-02-05] MEDS: ALBUTEROL SULF HFA 90MCG INH 200DOSE IN SCH ×3 (06:00→19:35)
[2021-02-05] MEDS: InsuLIN REG 1unit/0.01ml Soln (100units/ml) SC SCH ×4 (06:23→21:09)
[2021-02-05] MEDS: MORPHINE SULFATE INJECTION 2 MG/ML SYRG IV PRN ×2 (06:32→21:23)
[2021-02-05] MEDS: ACCU-CHEK COMFORT CURVE STRIP VI SCH ×4 (06:45→21:02)
[2021-02-05] MEDS: D5W/ SOD CHL 0.9%/KCL 20MEQ 1,000 ML IV SCH ×3 (06:52→20:48)
[2021-02-05 09:00] VITALS: BP 103/70
[2021-02-05] MEDS: FERROUS SULFATE 325mg EC TAB PO SCH (09:47)
[2021-02-05] MEDS: PANTOPRAZOLE 40 MG TAB PO SCH (09:47)
[2021-02-05] MEDS: DexAMETHasone SOD PHOS 10MG/1ML VIAL INJ IV SCH ×2 (09:50→20:47)
[2021-02-05] MEDS: ENOXAPARIN SOD 40 MG/0.4 ML SYRINGE SC SCH ×2 (09:52→20:48)
[2021-02-05] MEDS ORDERED: DIGOXIN (250MCG/ML) 2 ML AMPULE IV SCH (10:00)
[2021-02-05] MEDS: FUROSEMIDE 40 MG/4 ML VIAL IV SCH (10:14)
[2021-02-05] MEDS: INSULIN LANTUS (GLARGINE) 1 /0.01ml (100units/ml) SC SCH ×2 (10:47→21:19)
[2021-02-05 12:31] VITALS: BP 132/77
[2021-02-05] MEDS ORDERED: SODIUM CHLORIDE 0.9% 250 ML IV ONE (13:45)
[2021-02-05] MEDS ORDERED: dilTIAZem 25 MG/5 ML VIAL IV ONE (13:45)
[2021-02-05 16:40] VITALS: BP 106/68
[2021-02-05] MEDS: ATORVASTATIN 20 MG TAB PO SCH (21:20)
[2021-02-05] MEDS: ONDANSETRON HCL 4 MG/2 ML VIAL IV PRN (21:28)
[2021-02-05 22:00] VITALS: BP 122/64
[2021-02-06 05:00] VITALS: BP 127/69
[2021-02-06] MEDS: GABAPENTIN 300 MG CAP PO SCH ×3 (05:17→22:00)
[2021-02-06] MEDS: MORPHINE SULFATE INJECTION 2 MG/ML SYRG IV PRN ×4 (05:36→21:04)
[2021-02-06] MEDS: ONDANSETRON HCL 4 MG/2 ML VIAL IV PRN (05:36)
[2021-02-06] MEDS: PIPERACILLIN-TAZOB 3.375GM 100 ML IV SCH ×3 (05:36→16:56)
[2021-02-06] MEDS: InsuLIN REG 1unit/0.01ml Soln (100units/ml) SC SCH ×4 (06:05→22:17)
[2021-02-06] MEDS: ACCU-CHEK COMFORT CURVE STRIP VI SCH ×4 (06:05→22:21)
[2021-02-06 06:37] LABS: Potassium 4.2 mmol/L (3.5-5.1)
[2021-02-06 06:46] LABS: BUN/Creatinine Ratio 82.8; Bilirubin, Total 0.4 mg/dL (0.2-1.0); Total Protein 5.1 g/dL (6.4-8.2)
[2021-02-06] MEDS: D5W/ SOD CHL 0.9%/KCL 20MEQ 1,000 ML IV SCH ×2 (06:52→17:40)
[2021-02-06] MEDS: ALBUTEROL SULF HFA 90MCG INH 200DOSE IN SCH ×3 (07:28→19:06)
[2021-02-06 09:38] VITALS: BP 132/75
[2021-02-06] MEDS: FERROUS SULFATE 325mg EC TAB PO SCH (09:59)
[2021-02-06] MEDS: PANTOPRAZOLE 40 MG TAB PO SCH (09:59)
[2021-02-06] MEDS: DIGOXIN (250MCG/ML) 2 ML AMPULE IV SCH (10:40)
[2021-02-06] MEDS: FUROSEMIDE 40 MG/4 ML VIAL IV SCH (10:40)
[2021-02-06] MEDS: DexAMETHasone SOD PHOS 10MG/1ML VIAL INJ IV SCH (10:40)
[2021-02-06] MEDS: ENOXAPARIN SOD 40 MG/0.4 ML SYRINGE SC SCH ×2 (10:41→22:22)
[2021-02-06] MEDS: INSULIN LANTUS (GLARGINE) 1 /0.01ml (100units/ml) SC SCH ×2 (11:30→22:21)
[2021-02-06 12:30] VITALS: BP 138/74
[2021-02-06 13:00] VITALS: BP 146/83
[2021-02-06 17:11] VITALS: BP 122/72
[2021-02-06 22:00] VITALS: BP 138/60
[2021-02-06] MEDS: ATORVASTATIN 20 MG TAB PO SCH (22:00)
[2021-02-06] MEDS: DexAMETHasone SOD PHOS 4 MG/1ML SDV INJ IV SCH (22:21)
[2021-02-07] VITALS (20 sets, daily range): BP systolic 89–165; BP diastolic 44–76
[2021-02-07] MEDS: MORPHINE SULFATE INJECTION 2 MG/ML SYRG IV PRN ×5 (00:46→11:08)
[2021-02-07] MEDS: PIPERACILLIN-TAZOB 3.375GM 100 ML IV SCH ×5 (00:46→23:13)
[2021-02-07] MEDS: GABAPENTIN 300 MG CAP PO SCH ×3 (06:00→22:07)
[2021-02-07] MEDS: InsuLIN REG 1unit/0.01ml Soln (100units/ml) SC SCH ×4 (06:27→22:10)
[2021-02-07] MEDS: ACCU-CHEK COMFORT CURVE STRIP VI SCH ×4 (06:27→22:08)
[2021-02-07] MEDS ORDERED: dilTIAZem 25 MG/5 ML VIAL IV ONE (08:15)
[2021-02-07] MEDS: D5W/ SOD CHL 0.9%/KCL 20MEQ 1,000 ML IV SCH ×4 (08:45→22:06)
[2021-02-07] MEDS: FERROUS SULFATE 325mg EC TAB PO SCH ×2 (10:00→18:00)
[2021-02-07] MEDS: PANTOPRAZOLE 40 MG TAB PO SCH (10:00)
[2021-02-07] MEDS: ALBUTEROL SULF HFA 90MCG INH 200DOSE IN SCH ×3 (11:04→22:22)
[2021-02-07] MEDS: DexAMETHasone SOD PHOS 4 MG/1ML SDV INJ IV SCH ×2 (11:07→22:06)
[2021-02-07] MEDS: FUROSEMIDE 40 MG/4 ML VIAL IV SCH (11:08)
[2021-02-07] MEDS: ENOXAPARIN SOD 40 MG/0.4 ML SYRINGE SC SCH ×2 (11:08→22:08)
[2021-02-07 11:09] LABS: Hemoglobin 12.1 g/dL (12.2-16.2)
[2021-02-07 11:10] LABS: Hematocrit 38.3 % (36.0-46.0); Mean Corpuscular Hemoglobin 22.8 pg (28.0-32.0); Mean Corpuscular Hgb Conc. 31.7 g/dL (32.0-36.0); Mean Corpuscular Volume 71.9 fL (80.0-100.0); Red Blood Cells 5.33 10^6/uL (4.0-5.20); Red Cell Distribution Width 18.3 % (11.8-14.3)
[2021-02-07] MEDS: INSULIN LANTUS (GLARGINE) 1 /0.01ml (100units/ml) SC SCH ×2 (11:11→22:09)
[2021-02-07 11:17] LABS: INR 1.02 (0.9-1.15); Partial Thromboplastin Time 25.9 sec (23.6-33.0)
[2021-02-07 11:20] LABS: BUN/Creatinine Ratio 77.9; Calcium 8.6 mg/dL (8.5-10.1); Magnesium 2.7 mg/dL (1.6-2.6); Phosphorus 2.4 mg/dL (2.5-4.90); Potassium 4.2 mmol/L (3.5-5.1)
[2021-02-07 11:28] LABS: Basophils % (manual) 0 (0.0-2.0); Blast Cells 0; Eosinophils % (manual) 0 (0-7); Myelocytes % 0; Promyelocytes % 0; Reactive Lymphocytes 0
[2021-02-07] MEDS: LISINOPRIL 5 MG TAB PO SCH (11:45)
[2021-02-07 11:56] LABS: Band Neutrophils % (manual) 12; Lymphocytes % (manual) 4 (10.0-50.0); Metamyelocytes % 3; Monocytes % (manual) 4 (0-12)
[2021-02-07] MEDS: DIGOXIN (250MCG/ML) 2 ML AMPULE IV SCH (12:17)
[2021-02-07] MEDS ORDERED: MORPHINE SULFATE INJECTION 2 MG/ML SYRG IV PRN (13:15)
[2021-02-07] MEDS: PANTOPRAZOLE 40 MG/10 ML VIAL INJ IV SCH (13:32)
[2021-02-07] MEDS ORDERED: ALBUMIN 25% 100 ML IV ONE (15:45)
[2021-02-07] MEDS: HYDROmorphone HCL 2 MG/ML VL IV PRN (16:28)
[2021-02-07] MEDS ORDERED: LIDOCAINE 1% (LOCAL ANESTH.) PF 5ml SDV ID ONE (18:45)
[2021-02-07] MEDS ORDERED: NOREPINEPHRINE 8 MG/250ML KIT 250 ML IV ONE (18:57)
[2021-02-07] MEDS: NOREPINEPHRINE 8 MG/250ML KIT 250 ML IV SCH (19:10)
[2021-02-07] MEDS: SODIUM CHLOR 0.9% PF (SALINE LOCK) 10ML VIAL/SYR IV SCH (22:07)
[2021-02-07] MEDS: ATORVASTATIN 20 MG TAB PO SCH (22:07)
[2021-02-07] MEDS ORDERED: SUCCINYLCHOLINE CHLORIDE 20 MG/ML 10ML VIAL IV ONE (23:39)
[2021-02-07] MEDS ORDERED: ETOMIDATE (2MG/ML) 20ML VIAL IV ONE (23:39)
[2021-02-08] VITALS (83 sets, daily range): BP systolic 63–212; BP diastolic 23–107
[2021-02-08] MEDS ORDERED: SODIUM BICARBONATE 50ML VIAL 150 ML in D5W 5% 1,000 ML IV SCH (01:00)
[2021-02-08] MEDS ORDERED: SODIUM BICARBONATE 8.4% INJ 50ML SYRINGE ONE (01:29)
[2021-02-08] MEDS: LACTULOSE 20Gm/30ML SOLN PO SCH ×6 (01:40→23:00)
[2021-02-08] MEDS: D5W/ SOD CHL 0.9%/KCL 20MEQ 1,000 ML IV SCH ×2 (01:45→06:45)
[2021-02-08] MEDS: HYDROmorphone HCL 2 MG/ML VL IV PRN (02:00)
[2021-02-08 04:54] LABS: Red Blood Cells 3.65 10^6/uL (4.0-5.20); White Blood Cell 8.2 10^3/uL (4.4-10.8)
[2021-02-08 04:56] LABS: Hematocrit 28.9 % (36.0-46.0); Hemoglobin 8.2 g/dL (12.2-16.2); Mean Corpuscular Hemoglobin 22.6 pg (28.0-32.0); Mean Corpuscular Hgb Conc. 28.5 g/dL (32.0-36.0); Mean Corpuscular Volume 79.3 fL (80.0-100.0); Red Cell Distribution Width 19.2 % (11.8-14.3)
[2021-02-08] MEDS: GABAPENTIN 300 MG CAP PO SCH (06:00)
[2021-02-08] MEDS: ALBUTEROL SULF HFA 90MCG INH 200DOSE IN SCH (06:00)
[2021-02-08 06:13] LABS: Basophils % (manual) 0 (0.0-2.0); Blast Cells 0; Eosinophils % (manual) 0 (0-7); Metamyelocytes % 0; Myelocytes % 0; Promyelocytes % 0; Reactive Lymphocytes 0
[2021-02-08] MEDS: PIPERACILLIN-TAZOB 3.375GM 100 ML IV SCH ×4 (06:27→23:55)
[2021-02-08] MEDS: InsuLIN REG 1unit/0.01ml Soln (100units/ml) SC SCH ×4 (06:39→22:00)
[2021-02-08] MEDS: FERROUS SULFATE 325mg EC TAB PO SCH ×2 (06:39→14:51)
[2021-02-08] MEDS: ACCU-CHEK COMFORT CURVE STRIP VI SCH ×4 (07:00→23:04)
[2021-02-08 07:10] LABS: Band Neutrophils % (manual) 54; Lymphocytes % (manual) 11 (10.0-50.0); Monocytes % (manual) 3 (0-12)
[2021-02-08] MEDS ORDERED: ROCURONIUM 10MG/ML 10ML VIAL IV ONE (07:43)
[2021-02-08] MEDS ORDERED: ETOMIDATE (2MG/ML) 20ML VIAL IV ONE (07:43)
[2021-02-08] MEDS ORDERED: SUCCINYLCHOLINE CHLORIDE 20 MG/ML 10ML VIAL IV ONE (07:43)
[2021-02-08] MEDS ORDERED: MIDAZOLAM DRIP 50 mg/50mL 50 ML IV ONE (07:52)
[2021-02-08] MEDS: PHENYLEPHRINE IV 250 ML IV SCH ×4 (08:00→22:00)
[2021-02-08] MEDS: PROPOFOL 100 ML IV SCH (08:00)
[2021-02-08] MEDS ORDERED: MIDAZOLAM DRIP 50 mg/50mL 50 ML IV SCH (08:00)
[2021-02-08] MEDS ORDERED: PHENYLEPHRINE IV 250 ML IV ONE (08:01)
[2021-02-08 08:30] LABS: Albumin 1.1 g/dL (3.4-5.0); Anion Gap 8 (5-15); Blood Urea Nitrogen 60 mg/dL (7-18); Calcium 8.2 mg/dL (8.5-10.1); Carbon Dioxide 15 mmol/L (21-32); Chloride 124 mmol/L (98-107); Glucose 135 mg/dL (74-106); Magnesium 2.7 mg/dL (1.6-2.6); Potassium 5.4 mmol/L (3.5-5.1); Sodium 147 mmol/L (136-145)
[2021-02-08 08:33] LABS: Alanine Aminotransferase 229 U/L (13-56); Alkaline Phosphatase 175 U/L (45-117); Aspartate Aminotransferase 780 U/L (15-37); BUN/Creatinine Ratio 40.3; Bilirubin, Total 0.4 mg/dL (0.2-1.0); GFR African American 46 mL/min; GFR Non-African American 38 mL/min; Phosphorus 2.8 mg/dL (2.5-4.90); Total Protein 4.6 g/dL (6.4-8.2)
[2021-02-08] MEDS: DexAMETHasone SOD PHOS 4 MG/1ML SDV INJ IV SCH ×2 (09:05→23:00)
[2021-02-08] MEDS: PANTOPRAZOLE 40 MG/10 ML VIAL INJ IV SCH (09:05)
[2021-02-08] MEDS: DIGOXIN (250MCG/ML) 2 ML AMPULE IV SCH (09:06)
[2021-02-08] MEDS: ENOXAPARIN SOD 40 MG/0.4 ML SYRINGE SC SCH ×2 (09:06→23:05)
[2021-02-08] MEDS: INSULIN LANTUS (GLARGINE) 1 /0.01ml (100units/ml) SC SCH ×2 (09:06→22:00)
[2021-02-08] MEDS: SODIUM CHLOR 0.9% PF (SALINE LOCK) 10ML VIAL/SYR IV SCH ×2 (09:06→23:00)
[2021-02-08] MEDS: LISINOPRIL 5 MG TAB PO SCH (09:06)
[2021-02-08 11:32] LABS: Hemoglobin 10.6 g/dL (12.2-16.2); Mean Corpuscular Hgb Conc. 30.7 g/dL (32.0-36.0)
[2021-02-08 11:43] LABS: Hematocrit 34.7 % (36.0-46.0); Mean Corpuscular Hemoglobin 22.7 pg (28.0-32.0); Mean Corpuscular Volume 74.1 fL (80.0-100.0); Red Blood Cells 4.69 10^6/uL (4.0-5.20); Red Cell Distribution Width 18.4 % (11.8-14.3); White Blood Cell 12.5 10^3/uL (4.4-10.8)
[2021-02-08 12:07] LABS: Basophils % (manual) 0 (0.0-2.0); Blast Cells 0; Eosinophils % (manual) 0 (0-7); Promyelocytes % 0; Reactive Lymphocytes 0
[2021-02-08] MEDS ORDERED: BUMETANIDE 2.5mg/10ml (0.25 mg/ml) INJ IV ONE (13:45)
[2021-02-08] MEDS: MIDAZOLAM DRIP 50 mg/50mL 50 ML IV SCH ×2 (14:30→20:00)
[2021-02-08] MEDS: fentaNYL Drip 2500mCg/250mlNS 250 ML IV SCH (14:49)
[2021-02-08] MEDS: NOREPINEPHRINE 8 MG/250ML KIT 250 ML IV SCH ×2 (14:51→20:00)
[2021-02-08 15:08] LABS: Band Neutrophils % (manual) 47; Lymphocytes % (manual) 6 (10.0-50.0); Metamyelocytes % 2; Monocytes % (manual) 4 (0-12); Myelocytes % 2
[2021-02-08] MEDS: SODIUM BICARBONATE 50ML VIAL 150 ML in D5W 5% 1,000 ML IV SCH (16:38)
[2021-02-08] MEDS: ALBUTEROL SULF 2.5 MG/0.5ML(0.5%) NEB SOLN NEB SCH (18:52)
[2021-02-08] MEDS: EPINEPHrine HCL 250 ML IV SCH (19:00)
[2021-02-08] MEDS ORDERED: LORazepam 2MG/ML-1ML VIAL ONE (19:19)
[2021-02-08] MEDS: LORazepam 2MG/ML-1ML VIAL IV PRN ×6 (19:30→23:15)
[2021-02-08] MEDS ORDERED: SODIUM CHL 0.9% IV ONE (21:30)
[2021-02-08] MEDS ORDERED: PHENOBARBITAL SODIUM IV ONE (21:30)
[2021-02-08] MEDS: VASOPRESSIN 50 UNITS in D5W 5% 247.5 ML IV SCH (22:01)
[2021-02-08] MEDS: ATORVASTATIN 20 MG TAB PO SCH (23:01)
[2021-02-08] MEDS ORDERED: DEXTROSE 50% SYRINGE 50 ML IV ONE (23:13)
[2021-02-08] MEDS ORDERED: DEXTROSE (50%) 50ML SYRG IV PRN (23:30)
[2021-02-09] VITALS (39 sets, daily range): BP systolic 70–223; BP diastolic 15–192
[2021-02-09] MEDS: LORazepam 2MG/ML-1ML VIAL IV PRN
[2021-02-09] MEDS: PROPOFOL 100 ML IV SCH ×4 (01:00→10:31)
[2021-02-09] MEDS ORDERED: SODIUM CHL 0.9% IV ONE (01:30)
[2021-02-09] MEDS ORDERED: PHENYTOIN DILANTIN IV ONE (01:30)
[2021-02-09] MEDS: NOREPINEPHRINE 8 MG/250ML KIT 250 ML IV SCH (02:00)
[2021-02-09] MEDS: LACTULOSE 20Gm/30ML SOLN PO SCH ×5 (02:00→12:26)
[2021-02-09] MEDS: PHENYLEPHRINE IV 250 ML IV SCH ×4 (02:10→10:31)
[2021-02-09] MEDS ORDERED: PHENYTOIN SODIUM 50 MG/ML 2ML VIAL IV ONE (02:13)
[2021-02-09] MEDS: SODIUM BICARBONATE 50ML VIAL 150 ML in D5W 5% 1,000 ML IV SCH ×2 (04:00→13:40)
[2021-02-09] MEDS: PIPERACILLIN-TAZOB 3.375GM 100 ML IV SCH ×3 (06:00→16:02)
[2021-02-09] MEDS: ALBUTEROL SULF 2.5 MG/0.5ML(0.5%) NEB SOLN NEB SCH ×2 (06:08→13:09)
[2021-02-09] MEDS: InsuLIN REG 1unit/0.01ml Soln (100units/ml) SC SCH ×3 (07:00→16:02)
[2021-02-09] MEDS: ACCU-CHEK COMFORT CURVE STRIP VI SCH ×3 (07:00→16:02)
[2021-02-09] MEDS: fentaNYL Drip 2500mCg/250mlNS 250 ML IV SCH (09:00)
[2021-02-09] MEDS: MIDAZOLAM DRIP 50 mg/50mL 50 ML IV SCH ×2 (09:00)
[2021-02-09] MEDS: INSULIN LANTUS (GLARGINE) 1 /0.01ml (100units/ml) SC SCH (10:00)
[2021-02-09] MEDS: DexAMETHasone SOD PHOS 4 MG/1ML SDV INJ IV SCH (10:27)
[2021-02-09] MEDS: FERROUS SULFATE 325mg EC TAB PO SCH (10:28)
[2021-02-09] MEDS: PANTOPRAZOLE 40 MG/10 ML VIAL INJ IV SCH (10:28)
[2021-02-09] MEDS: SODIUM CHLOR 0.9% PF (SALINE LOCK) 10ML VIAL/SYR IV SCH (10:28)
[2021-02-09] MEDS: DIGOXIN (250MCG/ML) 2 ML AMPULE IV SCH (10:28)
[2021-02-09] MEDS: ENOXAPARIN SOD 40 MG/0.4 ML SYRINGE SC SCH (10:29)
[2021-02-09] MEDS: VASOPRESSIN 50 UNITS in D5W 5% 247.5 ML IV SCH (10:32)
[2021-02-09 10:44] LABS: Calcium 6.3 mg/dL (8.5-10.1); Magnesium 2.1 mg/dL (1.6-2.6); Potassium 5.1 mmol/L (3.5-5.1)
[2021-02-09 10:52] LABS: BUN/Creatinine Ratio 42.5; Bilirubin, Total 0.6 mg/dL (0.2-1.0); Phosphorus 5.1 mg/dL (2.5-4.90); Total Protein 3.1 g/dL (6.4-8.2)
[2021-02-09] MEDS ORDERED: MORPHINE SULFATE INJECTION 2 MG/ML SYRG IV PRN (11:00)
[2021-02-09 13:09] LABS: Albumin 0.6 g/dL (3.4-5.0)
[2021-02-09] MEDS: EPINEPHrine HCL 250 ML IV SCH (16:02)
== END 2021-02-09 23:10 | DRG 137 ==
LOC: ER 16:02 → TELE 20:36 → EAST 01-17 12:53 → TELE-EAST 01-19 21:12 → ICU CENTRL 02-07 16:56 → DOU IN ICU 02-07 17:00
PROVIDERS: ADMIT Internal Medicine; ATTEND Internal Medicine
PROC: XW033E5 Introduction of Remdesivir Anti-infective into Peripheral Vein, Percutaneous Approach, New Technology Group 5 (ICD-10-PCS; principal; 2021-01-16)
PROC: 0D9670Z Drainage of Stomach with Drainage Device, Via Natural or Artificial Opening (ICD-10-PCS; 2021-02-04)
PROC: 02HV33Z Insertion of Infusion Device into Superior Vena Cava, Percutaneous Approach (ICD-10-PCS; 2021-02-07)
PROC: 5A1935Z Respiratory Ventilation, Less than 24 Consecutive Hours (ICD-10-PCS; 2021-02-08)
PROC: 0BH17EZ Insertion of Endotracheal Airway into Trachea, Via Natural or Artificial Opening (ICD-10-PCS; 2021-02-08)
DX: U07.1 COVID-19 (principal); J96.01 Acute respiratory failure with hypoxia; K72.00 Acute and subacute hepatic failure without coma; A41.89 Other specified sepsis; J12.82 Pneumonia due to coronavirus disease 2019; C78.6 Secondary malignant neoplasm of retroperitoneum and peritoneum; K56.600 Partial intestinal obstruction, unspecified as to cause; C78.7 Secondary malignant neoplasm of liver and intrahepatic bile duct; E87.2 Acidosis; R16.0 Hepatomegaly, not elsewhere classified; R65.21 Severe sepsis with septic shock; I46.9 Cardiac arrest, cause unspecified; E88.09 Other disorders of plasma-protein metabolism, not elsewhere classified; N17.9 Acute kidney failure, unspecified; Z66 Do not resuscitate; E11.40 Type 2 diabetes mellitus with diabetic neuropathy, unspecified; I50.32 Chronic diastolic (congestive) heart failure; D50.9 Iron deficiency anemia, unspecified; I11.0 Hypertensive heart disease with heart failure; D72.819 Decreased white blood cell count, unspecified; J98.11 Atelectasis; E87.6 Hypokalemia; E78.5 Hyperlipidemia, unspecified; E11.65 Type 2 diabetes mellitus with hyperglycemia; E87.5 Hyperkalemia; R56.9 Unspecified convulsions; I47.1 Supraventricular tachycardia; Z53.9 Procedure and treatment not carried out, unspecified reason; Z79.899 Other long term (current) drug therapy; Z80.7 Family history of other malignant neoplasms of lymphoid, hematopoietic and related tissues; Z82.3 Family history of stroke; Z82.49 Family history of ischemic heart disease and other diseases of the circulatory system; Z83.3 Family history of diabetes mellitus; Z90.710 Acquired absence of both cervix and uterus; C18.9 Malignant neoplasm of colon, unspecified
CPT/HCPCS: 36415; 36569; 36600; 71045; 71275; 74018; 74177; 74250; 80048; 80053; 80162; 82140; 82728; 82805; 82962; 83036; 83605; 83735; 83880; 84100; 84443; 84484; 85007; 85025; 85027; 85379; 85610; 85730; 86141; 86850; 86900; 86901; 87040; 87070; 87077; 87186; 87205; 87426; 93005; 93306; 93970; 94002; 94003; 94640; 96365; 96372; 96375; 97110; 97116; 97163; 97530; C9113; G0378; J0171; J0330; J1100; J1815; J2250; J2405; J2543; J2704; J3480; J7060; P9047